=== PATIENT | male | born 1965 | race Caucasian/White ===

== ENCOUNTER → 2017-08-31 | Day surgery (SDC) | payer BC ==
[~2017-08-31] MED LIST: AMLODIPINE BESYL5 MG PO; BAYER WOMEN'S1 EACH PO; GLIPIZIDE5 MG PO; KETAMINE HCL INJ 50 MG/ML 10 ML VIAL ONE; LIDOCAINE HCL 2% LOCAL INJ 5 ML SDV VIAL INJ ONE; METFORMIN HCL1000 M1 PO; METOPROLOL SUCC50 MG PO; MIDAZOLAM HCL 2 MG/2 ML VIAL ONE; PROPOFOL IV EMULSION 10 MG/ML 50 ML VIAL ONE; RAMIPRIL5 MG PO; SIMVASTATIN20 MG PO
== END | disposition home or self-care (01) ==
LOC: OR 07:12
PROVIDERS: ATTEND Internal Medicine Gastroenterology
DX: Z12.11 Encounter for screening for malignant neoplasm of colon (principal); D12.0 Benign neoplasm of cecum; D12.2 Benign neoplasm of ascending colon; K63.9 Disease of intestine, unspecified; K57.30 Diverticulosis of large intestine without perforation or abscess without bleeding; K64.1 Second degree hemorrhoids; I10 Essential (primary) hypertension; E66.09 Other obesity due to excess calories; E11.9 Type 2 diabetes mellitus without complications; Z79.82 Long term (current) use of aspirin; Z68.41 Body mass index [BMI] 40.0-44.9, adult; Z85.47 Personal history of malignant neoplasm of testis; G47.33 Obstructive sleep apnea (adult) (pediatric)
CPT/HCPCS: 36415; 45380; 45384; 82948; 93005; J2001; J2250; 45378

== ENCOUNTER 2019-09-15 23:32 | Emergency (ER) | payer BC ==
[~2019-09-15] VITALS: Ht 193 cm; Wt 172.4 kg
[~2019-09-15 23:32] MED LIST changes: -KETAMINE HCL INJ 50 MG/ML 10 ML VIAL ONE; -LIDOCAINE HCL 2% LOCAL INJ 5 ML SDV VIAL INJ ONE; -MIDAZOLAM HCL 2 MG/2 ML VIAL ONE; -PROPOFOL IV EMULSION 10 MG/ML 50 ML VIAL ONE
[2019-09-16] MEDS ORDERED: DIAZEPAM 2 MG TAB PO ONE (00:30)
[2019-09-16] MEDS ORDERED: KETOROLAC TROMETHAMINE 60 MG/2 ML VIAL IM ONE (00:30)
--- NOTE | 2019-09-16 01:33 | Diagnostic Imaging Report ---
CT BRAIN WO, CT CERVICAL SPINE WO HISTORY: Fall COMPARISON: None. TECHNIQUE: Axial noncontrast CT images were obtained through the head and cervical spine. Coronal and sagittal reconstructions obtained from the axial data. One or more of the following dose reduction techniques were used: Automated exposure control, adjustment of the mA and/or kV according to patient size, and/or utilization of iterative reconstruction technique. DISCUSSION: HEAD CT: Scalp/Skull: Unremarkable. Brain sulci: Mildly prominent, especially along the frontal lobes. Ventricles: Mild compensatory dilatation. Extra-axial spaces: No masses or fluid collections. Parenchyma: Mild periventricular white matter hypodensities are likely chronic microvascular ischemic changes. No masses, hemorrhage, or large vascular territory acute infarct. Dural sinuses: No abnormal densities. Sellar/Suprasellar region: Intact. Skull base: Intact. Incidental findings: None. CERVICAL SPINE CT: Cervical lordosis is straightened. There is no scoliosis or subluxation. No fractures, compression deformity, or destructive osseous lesions are seen. The craniocervical junction is intact. No gross spinal canal masses are seen. The paravertebral and paraspinal soft tissues are unremarkable. Mild multilevel spondylosis is most prominent at C5-C6 and C6-C7. Mild atlantoaxial arthrosis is present as well. Incidental findings: None. IMPRESSION: Head CT: 1. No acute intracranial abnormalities. 2. Mild generalized cerebral volume loss, especially along the frontal lobes. 3. Mild supratentorial chronic microvascular ischemic change. Cervical Spine CT: 1. No acute osseous abnormalities in the cervical spine. 2. Mild multilevel spondylosis, most prominent at C5-C6 and C6-C7. Signed by: Dr. Ahmet Huertas M.D. on 09/16/2019 1:30 AM
--- NOTE | 2019-09-16 02:20 | Diagnostic Imaging Report ---
X-ray bilateral hands 3 views each HISTORY: Pain. COMPARISON: None available. FINDINGS: No displaced fracture. The osseous alignment is within normal limits. Degenerative changes in the first carpometacarpal joints and in the fingers. The soft tissues appear unremarkable. IMPRESSION: No acute radiographic osseous abnormality. Mild degenerative changes in the first metacarpal joints and fingers. Signed by: Lawrence Ying DO on 09/16/2019 2:17 AM
--- NOTE | 2019-09-16 02:22 | Diagnostic Imaging Report ---
Lumbar Spine Radiographs: 5 views with oblique views HISTORY: Pain. COMPARISON: None available. DISCUSSION: Some of the osseous structures are partially obscured by stool and bowel gas. There are five non-rib bearing lumbar vertebral bodies. The alignment of the spine is within normal limits. No displaced fracture or compression deformity is identified. Disc Spaces: Mild decreased disc space at L1-L2. Vacuum disc phenomena at L4-L5 and L5-S1. Multilevel mild disc osteophytes Facets: Sclerotic facet arthropathy in the lumbar spine. IMPRESSION: No acute radiographic osseous abnormality. Degenerative changes in the spine. Signed by: Lawrence Ying DO on 09/16/2019 2:18 AM
--- NOTE | 2019-09-16 02:24 | Diagnostic Imaging Report ---
X-ray right foot 3 views HISTORY: Pain. COMPARISON: None available. FINDINGS: Bones: No acute displaced fracture. Osseous alignment is within normal limits. Healed second toe proximal phalangeal fracture.. Joints: Scattered degenerative changes in the foot. Soft tissues: Achilles tendon calcaneal enthesophytes. Vascular calcifications. IMPRESSION: No acute radiographic osseous abnormality. Scattered degenerative changes in the foot. Signed by: Lawrence Ying DO on 09/16/2019 2:21 AM
[2019-09-16] MEDS ORDERED: ULTRAM50 MG PO (02:34)
[2019-09-16 03:05] VITALS: BP 132/69
== END 2019-09-16 03:07 | disposition home or self-care (01) ==
LOC: ER 23:32
DX: S13.4XXA Sprain of ligaments of cervical spine, initial encounter (principal); S00.83XA Contusion of other part of head, initial encounter; M25.532 Pain in left wrist; M25.531 Pain in right wrist; M54.5 Low back pain; W01.0XXA Fall on same level from slipping, tripping and stumbling without subsequent striking against object, initial encounter; Y92.39 Other specified sports and athletic area as the place of occurrence of the external cause; I10 Essential (primary) hypertension; E11.9 Type 2 diabetes mellitus without complications; Z98.84 Bariatric surgery status
CPT/HCPCS: 70450; 72110; 72125; 73130; 73630; 99284; J1885

== ENCOUNTER 2020-10-02 23:51 | Observation (INO) | payer BC ==
[~2020-10-02] VITALS: Ht 188 cm; Wt 167.8 kg
[~2020-10-02 23:51] MED LIST changes: +ULTRAM50 MG PO
[2020-10-03] VITALS (8 sets, daily range): BP systolic 156–174; BP diastolic 78–86
[2020-10-03] MEDS ORDERED: SODIUM CHLORIDE 0.9% 1000ML 1,000 ML IV STA (00:13)
[2020-10-03 00:27] LABS: BASOPHILS # (AUTO) 0.1 (0.0-0.1); BASOPHILS % 0.7 % (0.0-1.0); EOSINOPHILS # (AUTO) 0.1 (0.0-0.4); EOSINOPHILS % 1.2 % (0.0-6.0); HEMATOCRIT 47.2 % (38.2-49.6); HEMOGLOBIN 15.4 g/dL (14.0-18.0); LYMPHOCYTES # (AUTO) 1.7 (1.0-3.2); LYMPHOCYTES % 16.7 % (18.0-39.1); MEAN CORPUSCULAR HEMOGLOBIN 29.1 pg (28-32); MEAN CORPUSCULAR HGB CONC 32.6 g/dL (31-35); MEAN CORPUSCULAR VOLUME 89.2 fL (81-99); MONOCYTES # (AUTO) 0.6 (0.2-0.8); MONOCYTES % 6.2 % (4.4-11.3); NEUTROPHILS # (AUTO) 7.4 (2.1-6.9); NEUTROPHILS % 74.4 % (38.7-80.0); PLATELET COUNT 252 x10e3/uL (140-360); RED BLOOD COUNT 5.29 x10e6/uL (4.3-5.7); RED CELL DISTRIBUTION WIDTH 14.7 % (11.7-14.4)
[2020-10-03 00:46] LABS: ALANINE AMINOTRANSFERASE 15 IU/L (0-55); ALBUMIN/GLOBULIN RATIO 1.4 (0.8-2.0); ALKALINE PHOSPHATASE 74 IU/L (40-150); ANION GAP 14.1 mmol/L (8-16); BLOOD UREA NITROGEN 16 mg/dL (7-26); BUN/CREATININE RATIO 16 (6-25); CALCIUM 9.4 mg/dL (8.4-10.2); CARBON DIOXIDE 25 mmol/L (22-29); CHLORIDE 102 mmol/L (98-107); CREATINE KINASE 52 IU/L (30-200); CREATININE, SERUM 0.98 mg/dL (0.72-1.25); EST GLOMERULAR FILTRATION RATE > 60 ML/MIN (60-); GLUCOSE 146 mg/dL (74-118); POTASSIUM 4.1 mmol/L (3.5-5.1); SODIUM 137 mmol/L (136-145)
[2020-10-03] MEDS ORDERED: MORPHINE SULFATE INJ 4 MG/ML INJ 1ML IV STA (01:50)
[2020-10-03] MEDS ORDERED: ONDANSETRON HCL INJ 2MG/ML 2ML 2 MG/ML VIAL IV PRN (02:45)
[2020-10-03] MEDS ORDERED: ASPIRIN 81 MG CHEW TAB PO ONE (02:45)
[2020-10-03] MEDS: AMLODIPINE BESYLATE 5 MG TAB PO SCH (08:48)
[2020-10-03] MEDS: METOPROLOL SUCCINATE 50 MG TAB XL PO SCH (08:48)
[2020-10-03] MEDS: RAMIPRIL 5 MG CAP PO SCH ×2 (08:48→16:53)
[2020-10-03] MEDS: GLIPIZIDE 5 MG TAB PO SCH ×2 (08:48→16:53)
[2020-10-03 12:07] LABS: CREATINE KINASE MB 1.2 ng/mL (0-5.0)
[2020-10-03] MEDS: MORPHINE SULFATE INJ 4 MG/ML INJ 1ML IV PRN ×2 (12:39→20:14)
[2020-10-03] MEDS ORDERED: SIMVASTATIN 20 MG TAB PO SCH (21:00)
[2020-10-03] MEDS ORDERED: HYDRALAZINE HCL 20 MG/ML VIAL IV PRN (23:45)
[2020-10-04] VITALS (10 sets, daily range): BP systolic 121–207; BP diastolic 71–166
[2020-10-04] MEDS: MORPHINE SULFATE INJ 4 MG/ML INJ 1ML IV PRN (03:30)
[2020-10-04] MEDS ORDERED: KETOROLAC TROMETHAMINE 30 MG/ML VIAL IV STA (04:41)
[2020-10-04] MEDS ORDERED: CLONIDINE HCL 0.1 MG TAB PO PRN (04:45)
[2020-10-04 05:48] LABS: BASOPHILS # (AUTO) 0.1 (0.0-0.1); BASOPHILS % 0.8 % (0.0-1.0); EOSINOPHILS # (AUTO) 0.2 (0.0-0.4); EOSINOPHILS % 2.6 % (0.0-6.0); HEMATOCRIT 46.2 % (38.2-49.6); HEMOGLOBIN 15.2 g/dL (14.0-18.0); LYMPHOCYTES # (AUTO) 1.9 (1.0-3.2); LYMPHOCYTES % 22.1 % (18.0-39.1); MEAN CORPUSCULAR HEMOGLOBIN 29.4 pg (28-32); MEAN CORPUSCULAR HGB CONC 32.9 g/dL (31-35); MEAN CORPUSCULAR VOLUME 89.4 fL (81-99); MONOCYTES # (AUTO) 0.7 (0.2-0.8); MONOCYTES % 8.5 % (4.4-11.3); NEUTROPHILS # (AUTO) 5.6 (2.1-6.9); NEUTROPHILS % 65.3 % (38.7-80.0); PLATELET COUNT 203 x10e3/uL (140-360); RED BLOOD COUNT 5.17 x10e6/uL (4.3-5.7); RED CELL DISTRIBUTION WIDTH 14.8 % (11.7-14.4)
[2020-10-04 06:15] LABS: ALANINE AMINOTRANSFERASE 14 IU/L (0-55); ALBUMIN 3.5 g/dL (3.5-5.0); ALBUMIN/GLOBULIN RATIO 1.2 (0.8-2.0); ALKALINE PHOSPHATASE 57 IU/L (40-150); ANION GAP 10.8 mmol/L (8-16); BLOOD UREA NITROGEN 13 mg/dL (7-26); BUN/CREATININE RATIO 17 (6-25); CALCIUM 8.8 mg/dL (8.4-10.2); CARBON DIOXIDE 26 mmol/L (22-29); CHLORIDE 103 mmol/L (98-107); CREATININE, SERUM 0.78 mg/dL (0.72-1.25); EST GLOMERULAR FILTRATION RATE > 60 ML/MIN (60-); GLUCOSE 121 mg/dL (74-118); POTASSIUM 3.8 mmol/L (3.5-5.1); SODIUM 136 mmol/L (136-145)
[2020-10-04] MEDS: RAMIPRIL 5 MG CAP PO SCH (09:00)
[2020-10-04] MEDS: METOPROLOL SUCCINATE 50 MG TAB XL PO SCH (09:00)
[2020-10-04] MEDS: AMLODIPINE BESYLATE 5 MG TAB PO SCH (09:00)
[2020-10-04] MEDS: GLIPIZIDE 5 MG TAB PO SCH (09:00)
[2020-10-04] MEDS ORDERED: ONDANSETRON HCL 4 MG ORAL DISINTEGRATING TAB PO PRN (15:45)
== END 2020-10-04 17:30 | disposition home or self-care (01) ==
LOC: ER 10-03 00:11 → ERHOLD 10-03 02:36 → MED/SURG3 10-03 04:37
PROVIDERS: ADMIT Internal Medicine; ATTEND Internal Medicine
DX: R55 Syncope and collapse (principal); I10 Essential (primary) hypertension; E11.9 Type 2 diabetes mellitus without complications; W19.XXXA Unspecified fall, initial encounter; Z20.828 Contact with and (suspected) exposure to other viral communicable diseases; E78.00 Pure hypercholesterolemia, unspecified; G47.33 Obstructive sleep apnea (adult) (pediatric); E66.01 Morbid (severe) obesity due to excess calories; Z68.42 Body mass index [BMI] 45.0-49.9, adult; Z98.84 Bariatric surgery status
CPT/HCPCS: 36415 ×2; 70450; 71045; 72100; 73080; 80053 ×2; 82550; 82553; 83880; 84484; 85025 ×2; 93005; 93306; 93880; 99285; G0378 ×2; J0360; J1885; J2270 ×2; J7030; U0002

== ENCOUNTER 2021-08-08 22:08 | Inpatient (IN) | payer BC ==
[~2021-08-08] VITALS: Ht 167.6 cm; Wt 166.3 kg
[2021-08-08 22:49] LABS: BASOPHILS # (AUTO) 0.1 (0.0-0.1); BASOPHILS % 0.6 % (0.0-1.0); HEMATOCRIT 45.3 % (38.2-49.6); HEMOGLOBIN 14.6 g/dL (14.0-18.0); LYMPHOCYTES # (AUTO) 0.3 (1.0-3.2); LYMPHOCYTES % 3.4 % (18.0-39.1); MEAN CORPUSCULAR HEMOGLOBIN 29.7 pg (28-32); MEAN CORPUSCULAR HGB CONC 32.2 g/dL (31-35); MEAN CORPUSCULAR VOLUME 92.1 fL (81-99); MONOCYTES # (AUTO) 0.4 (0.2-0.8); MONOCYTES % 3.7 % (4.4-11.3); NEUTROPHILS # (AUTO) 9.1 (2.1-6.9); NEUTROPHILS % 91.7 % (38.7-80.0); PLATELET COUNT 149 x10e3/uL (140-360); RED BLOOD COUNT 4.92 x10e6/uL (4.3-5.7)
[2021-08-08 23:06] LABS: ALBUMIN 3.5 g/dL (3.5-5.0); ALBUMIN/GLOBULIN RATIO 1.1 (0.8-2.0); ANION GAP 15.7 mmol/L (8-16); CALCIUM 8.2 mg/dL (8.4-10.2); CREATININE, SERUM 1.28 mg/dL (0.72-1.25); POTASSIUM 3.7 mmol/L (3.5-5.1)
[2021-08-08] MEDS: CEFEPIME 1 GM in SODIUM CHLORIDE 0.9% 50ML 50 ML IV SCH (23:11)
[2021-08-08] MEDS ORDERED: Vancomycin IV 1 GM VIAL ONE (23:27)
[2021-08-08] MEDS: Vancomycin IV 1 GM in SODIUM CHLORIDE 0.9% 250ML 250 ML IV SCH (23:56)
[2021-08-09] VITALS (8 sets, daily range): BP systolic 118–140; BP diastolic 61–78
[2021-08-09] MEDS ORDERED: ACETAMINOPHEN 325 MG TAB PO PRN
[2021-08-09] MEDS ORDERED: Morphine 4mg Syringe 4 MG/ML INJ IV PRN
[2021-08-09] MEDS ORDERED: DEXTROSE 50% SYRINGE 50 ML IV PRN
[2021-08-09] MEDS ORDERED: ONDANSETRON HCL INJ 2MG/ML 2ML 2 MG/ML VIAL IV PRN
[2021-08-09 00:18] LABS: CLARITY,URINE CLEAR (CLEAR); COLOR,URINE YELLOW (YELLOW)
[2021-08-09 00:19] LABS: KETONES,URINE 2+ (NEGATIVE); LEUKOCYTE ESTERASE ,URINE NEGATIVE (NEGATIVE); NITRITE,URINE NEGATIVE (NEGATIVE); PROTEIN,URINE DIPSTICK NEGATIVE (NEGATIVE); URINE UROBILINOGEN 0.2 mg/dL (0.2 - 1)
[2021-08-09 00:23] LABS: BACTERIA,URINE FEW /HPF; EPITHELIAL CELLS,URINE RARE /LPF; WBC,URINE (MAN) 0-5 /HPF (0-5)
[2021-08-09] MEDS: METOPROLOL SUCCINATE 50 MG TAB XL PO SCH ×2 (00:59→17:17)
[2021-08-09] MEDS: AMLODIPINE BESYLATE 5 MG TAB PO SCH ×3 (00:59→17:16)
[2021-08-09] MEDS ORDERED: METOPROLOL SUCCINATE 50 MG TAB XL ONE (01:06)
[2021-08-09] MEDS ORDERED: AMLODIPINE BESYLATE 5 MG TAB ONE (01:06)
[2021-08-09] MEDS ORDERED: TRAMADOL HCL 50 MG TAB PO PRN (03:30)
[2021-08-09] MEDS: CEFEPIME 1 GM in SODIUM CHLORIDE 0.9% 50ML 50 ML IV SCH ×3 (05:48→21:45)
[2021-08-09] MEDS: INSULIN REGULAR, HUMAN 100 UNIT/1 ML SQ SCH ×4 (07:30→21:00)
[2021-08-09 08:01] LABS: BASOPHILS % 0.6 % (0.0-1.0); EOSINOPHILS # (AUTO) 0.1 (0.0-0.4); EOSINOPHILS % 0.9 % (0.0-6.0); HEMOGLOBIN 14.3 g/dL (14.0-18.0); LYMPHOCYTES # (AUTO) 0.3 (1.0-3.2); LYMPHOCYTES % 3.9 % (18.0-39.1); MEAN CORPUSCULAR HEMOGLOBIN 29.6 pg (28-32); MEAN CORPUSCULAR HGB CONC 32.5 g/dL (31-35); MEAN CORPUSCULAR VOLUME 91.1 fL (81-99); MONOCYTES # (AUTO) 0.4 (0.2-0.8); MONOCYTES % 5.5 % (4.4-11.3); NEUTROPHILS # (AUTO) 5.9 (2.1-6.9); NEUTROPHILS % 87.8 % (38.7-80.0); PLATELET COUNT 149 x10e3/uL (140-360); RED BLOOD COUNT 4.83 x10e6/uL (4.3-5.7); RED CELL DISTRIBUTION WIDTH 16.6 % (11.7-14.4)
[2021-08-09 08:32] LABS: ALBUMIN 3.1 g/dL (3.5-5.0); ALBUMIN/GLOBULIN RATIO 1.1 (0.8-2.0); CALCIUM 8.1 mg/dL (8.4-10.2)
[2021-08-09] MEDS: Vancomycin IV 1 GM in SODIUM CHLORIDE 0.9% 250ML 250 ML IV SCH ×2 (11:18→23:54)
[2021-08-09] MEDS: SIMVASTATIN 20 MG TAB PO SCH (21:27)
[2021-08-10] VITALS (9 sets, daily range): BP systolic 125–149; BP diastolic 56–80
[2021-08-10] MEDS: CEFEPIME 1 GM in SODIUM CHLORIDE 0.9% 50ML 50 ML IV SCH ×3 (05:32→21:35)
[2021-08-10] MEDS: INSULIN REGULAR, HUMAN 100 UNIT/1 ML SQ SCH ×4 (07:30→21:37)
[2021-08-10] MEDS: MUPIROCIN 2% OINT 22 GM TUBE TOP SCH (08:29)
[2021-08-10] MEDS: METOPROLOL SUCCINATE 50 MG TAB XL PO SCH ×2 (08:29→16:17)
[2021-08-10] MEDS: AMLODIPINE BESYLATE 5 MG TAB PO SCH ×2 (08:29→16:52)
[2021-08-10] MEDS: Vancomycin IV 1 GM in SODIUM CHLORIDE 0.9% 250ML 250 ML IV SCH (10:52)
[2021-08-10] MEDS ORDERED: Vancomycin IV 1 GM VIAL ONE (10:55)
[2021-08-10] MEDS ORDERED: SODIUM CHLORIDE 0.9% 250ML 250 ML ONE (11:01)
[2021-08-10] MEDS: DIPHENHYDRAMINE HCL 25 MG CAP PO SCH (16:52)
[2021-08-10] MEDS ORDERED: Vancomycin IV 1.25 GM in SODIUM CHLORIDE 0.9% 250ML 250 ML IV SCH (17:00)
[2021-08-10] MEDS: SIMVASTATIN 20 MG TAB PO SCH (21:35)
[2021-08-11] VITALS (8 sets, daily range): BP systolic 142–159; BP diastolic 78–97
[2021-08-11] MEDS: CEFEPIME 1 GM in SODIUM CHLORIDE 0.9% 50ML 50 ML IV SCH ×3 (05:19→21:31)
[2021-08-11] MEDS: INSULIN REGULAR, HUMAN 100 UNIT/1 ML SQ SCH ×4 (07:30→21:00)
[2021-08-11] MEDS: AMLODIPINE BESYLATE 5 MG TAB PO SCH ×2 (08:22→17:16)
[2021-08-11] MEDS: METOPROLOL SUCCINATE 50 MG TAB XL PO SCH ×2 (08:23→17:17)
[2021-08-11] MEDS ORDERED: [UNRECOGNIZED DRUG - OTHER] (08:25)
[2021-08-11] MEDS: MUPIROCIN 2% OINT 22 GM TUBE TOP SCH (09:00)
[2021-08-11] MEDS: DIPHENHYDRAMINE HCL 25 MG CAP PO SCH ×2 (11:20→23:13)
[2021-08-11] MEDS ORDERED: Vancomycin IV 1.25 GM in SODIUM CHLORIDE 0.9% 250ML 250 ML IV SCH (11:30)
[2021-08-11] MEDS ORDERED: ONDANSETRON HCL 4 MG ORAL DISINTEGRATING TAB PO PRN (11:45)
[2021-08-11] MEDS: SIMVASTATIN 20 MG TAB PO SCH (21:31)
[2021-08-11] MEDS: Vancomycin IV 1.25 GM in SODIUM CHLORIDE 0.9% 250ML 250 ML IV SCH (23:53)
[2021-08-12] VITALS (8 sets, daily range): BP systolic 132–145; BP diastolic 79–86
[2021-08-12] MEDS: CEFEPIME 1 GM in SODIUM CHLORIDE 0.9% 50ML 50 ML IV SCH ×3 (04:46→20:36)
[2021-08-12] MEDS: INSULIN REGULAR, HUMAN 100 UNIT/1 ML SQ SCH ×4 (07:30→20:34)
[2021-08-12] MEDS: DIPHENHYDRAMINE HCL 25 MG CAP PO SCH ×3 (08:48→23:07)
[2021-08-12] MEDS: METOPROLOL SUCCINATE 50 MG TAB XL PO SCH ×2 (08:48→17:21)
[2021-08-12] MEDS: AMLODIPINE BESYLATE 5 MG TAB PO SCH ×2 (08:48→17:22)
[2021-08-12] MEDS: MUPIROCIN 2% OINT 22 GM TUBE TOP SCH (09:04)
[2021-08-12] MEDS: Vancomycin IV 1.25 GM in SODIUM CHLORIDE 0.9% 250ML 250 ML IV SCH ×2 (12:23→23:43)
[2021-08-12] MEDS: SIMVASTATIN 20 MG TAB PO SCH (20:35)
[2021-08-13] VITALS (8 sets, daily range): BP systolic 132–152; BP diastolic 71–83
[2021-08-13] MEDS: CEFEPIME 1 GM in SODIUM CHLORIDE 0.9% 50ML 50 ML IV SCH ×3 (05:06→22:03)
[2021-08-13] MEDS: INSULIN REGULAR, HUMAN 100 UNIT/1 ML SQ SCH ×4 (07:30→21:05)
[2021-08-13] MEDS ORDERED: SODIUM CHLORIDE 0.9% 250ML 250 ML ONE (07:45)
[2021-08-13] MEDS: METOPROLOL SUCCINATE 50 MG TAB XL PO SCH ×2 (08:34→17:38)
[2021-08-13] MEDS: AMLODIPINE BESYLATE 5 MG TAB PO SCH ×2 (08:34→17:37)
[2021-08-13] MEDS: MUPIROCIN 2% OINT 22 GM TUBE TOP SCH (08:35)
[2021-08-13] MEDS: Vancomycin IV 1.25 GM in SODIUM CHLORIDE 0.9% 250ML 250 ML IV SCH ×2 (11:00→23:38)
[2021-08-13] MEDS: SIMVASTATIN 20 MG TAB PO SCH (21:05)
[2021-08-13] MEDS: DIPHENHYDRAMINE HCL 25 MG CAP PO SCH (23:08)
[2021-08-14] VITALS: BP 148/83
[2021-08-14 04:00] VITALS: BP 142/82
[2021-08-14] MEDS: CEFEPIME 1 GM in SODIUM CHLORIDE 0.9% 50ML 50 ML IV SCH (05:45)
[2021-08-14] MEDS: INSULIN REGULAR, HUMAN 100 UNIT/1 ML SQ SCH (07:30)
[2021-08-14 08:00] VITALS: BP 158/80
[2021-08-14] MEDS: Vancomycin IV 1.25 GM in SODIUM CHLORIDE 0.9% 250ML 250 ML IV SCH (08:23)
[2021-08-14] MEDS: DIPHENHYDRAMINE HCL 25 MG CAP PO SCH (08:23)
[2021-08-14] MEDS: AMLODIPINE BESYLATE 5 MG TAB PO SCH (08:24)
[2021-08-14] MEDS: MUPIROCIN 2% OINT 22 GM TUBE TOP SCH (08:25)
[2021-08-14] MEDS: METOPROLOL SUCCINATE 50 MG TAB XL PO SCH (08:25)
[2021-08-14 08:41] VITALS: BP 158/80
[2021-08-14 20:00] VITALS: BP 119/74
== END 2021-08-14 09:14 | disposition home or self-care (01) | DRG 623 ==
LOC: ER 22:38 → ERHOLD 08-09 00:20 → MED/SURG3 08-09 01:07
PROVIDERS: ADMIT Internal Medicine; ATTEND Internal Medicine
PROC: 0JBR0ZZ Excision of Left Foot Subcutaneous Tissue and Fascia, Open Approach (ICD-10-PCS; principal; 2021-08-09)
DX: E11.69 Type 2 diabetes mellitus with other specified complication (principal); L03.116 Cellulitis of left lower limb; Z68.43 Body mass index [BMI] 50.0-59.9, adult; L97.528 Non-pressure chronic ulcer of other part of left foot with other specified severity; M86.672 Other chronic osteomyelitis, left ankle and foot; G47.33 Obstructive sleep apnea (adult) (pediatric); E66.01 Morbid (severe) obesity due to excess calories; Z79.899 Other long term (current) drug therapy; E11.610 Type 2 diabetes mellitus with diabetic neuropathic arthropathy; E11.621 Type 2 diabetes mellitus with foot ulcer; Z20.822 Contact with and (suspected) exposure to COVID-19; E78.5 Hyperlipidemia, unspecified; G89.4 Chronic pain syndrome; E11.40 Type 2 diabetes mellitus with diabetic neuropathy, unspecified; I12.9 Hypertensive chronic kidney disease with stage 1 through stage 4 chronic kidney disease, or unspecified chronic kidney disease; E11.22 Type 2 diabetes mellitus with diabetic chronic kidney disease; N18.30 Chronic kidney disease, stage 3 unspecified
CPT/HCPCS: 36415; 71045; 80053; 80202; 81001; 82948; 83605; 85025; 87040; 87071; 87086; 87205; 87400; 94660; 96360; 96372; 99251; 99284; J0692; J3370; J7050; U0002

== ENCOUNTER → 2022-07-20 | Outpatient (CLI) | payer BC ==
[~2022-07-20] MED LIST changes: +[UNRECOGNIZED DRUG - OTHER]
== END ==
LOC: WCC 13:02 → MERGE 14:15
PROVIDERS: ATTEND Family Medicine
DX: E11.621 Type 2 diabetes mellitus with foot ulcer (principal); E11.628 Type 2 diabetes mellitus with other skin complications; M86.9 Osteomyelitis, unspecified; L97.429 Non-pressure chronic ulcer of left heel and midfoot with unspecified severity; G47.33 Obstructive sleep apnea (adult) (pediatric); I10 Essential (primary) hypertension; G90.09 Other idiopathic peripheral autonomic neuropathy; E78.01 Familial hypercholesterolemia; E66.3 Overweight; M14.672 Charcot's joint, left ankle and foot; Z01.810 Encounter for preprocedural cardiovascular examination; Z01.811 Encounter for preprocedural respiratory examination
CPT/HCPCS: 99212; G0277

== ENCOUNTER → 2022-07-22 | Outpatient (CLI) | payer BC | LOC: WCC 10:35 | PROVIDERS: ATTEND Family Medicine | DX: E11.621 Type 2 diabetes mellitus with foot ulcer (principal); E11.628 Type 2 diabetes mellitus with other skin complications; M86.9 Osteomyelitis, unspecified; L97.429 Non-pressure chronic ulcer of left heel and midfoot with unspecified severity; G90.09 Other idiopathic peripheral autonomic neuropathy; I10 Essential (primary) hypertension; E78.01 Familial hypercholesterolemia; G47.33 Obstructive sleep apnea (adult) (pediatric); M14.672 Charcot's joint, left ankle and foot; E66.3 Overweight; Z01.810 Encounter for preprocedural cardiovascular examination; Z01.811 Encounter for preprocedural respiratory examination ==

== ENCOUNTER → 2022-07-23 | Outpatient (CLI) | payer BC | LOC: WCC 12:50 | PROVIDERS: ATTEND Family Medicine Adult Medicine | DX: E11.621 Type 2 diabetes mellitus with foot ulcer (principal); E11.628 Type 2 diabetes mellitus with other skin complications; M86.9 Osteomyelitis, unspecified; L97.429 Non-pressure chronic ulcer of left heel and midfoot with unspecified severity; I10 Essential (primary) hypertension; E78.01 Familial hypercholesterolemia; G47.33 Obstructive sleep apnea (adult) (pediatric); G90.09 Other idiopathic peripheral autonomic neuropathy; M14.672 Charcot's joint, left ankle and foot; E66.3 Overweight; Z01.810 Encounter for preprocedural cardiovascular examination; Z01.811 Encounter for preprocedural respiratory examination ==

== ENCOUNTER → 2022-07-29 | Outpatient (CLI) | payer BC | LOC: WCC 15:39 | PROVIDERS: ATTEND Family Medicine | DX: E11.621 Type 2 diabetes mellitus with foot ulcer (principal); E11.628 Type 2 diabetes mellitus with other skin complications; M86.9 Osteomyelitis, unspecified; L97.429 Non-pressure chronic ulcer of left heel and midfoot with unspecified severity; G90.09 Other idiopathic peripheral autonomic neuropathy; I10 Essential (primary) hypertension; G47.33 Obstructive sleep apnea (adult) (pediatric); E78.01 Familial hypercholesterolemia; M14.672 Charcot's joint, left ankle and foot; E66.3 Overweight; Z01.810 Encounter for preprocedural cardiovascular examination; Z01.811 Encounter for preprocedural respiratory examination | CPT/HCPCS: 99213; G0277 ==

== ENCOUNTER → 2022-07-30 | Outpatient (CLI) | payer BC | LOC: WCC 13:51 | PROVIDERS: ATTEND Family Medicine | DX: E11.621 Type 2 diabetes mellitus with foot ulcer (principal); E11.628 Type 2 diabetes mellitus with other skin complications; M86.9 Osteomyelitis, unspecified; L97.429 Non-pressure chronic ulcer of left heel and midfoot with unspecified severity; I10 Essential (primary) hypertension; G47.33 Obstructive sleep apnea (adult) (pediatric); E78.01 Familial hypercholesterolemia; G90.09 Other idiopathic peripheral autonomic neuropathy; M14.672 Charcot's joint, left ankle and foot; E66.3 Overweight; Z01.810 Encounter for preprocedural cardiovascular examination; Z01.811 Encounter for preprocedural respiratory examination | CPT/HCPCS: 99212; G0277 ==

== ENCOUNTER → 2022-08-18 | Day surgery (SDC) | payer BC ==
[~2022-08-18] MED LIST changes: +BENICAR HCT 401 EACH PO; +FENTANYL CITRATE/PF 100MCG/2 ML INJ ONE; +MIDAZOLAM HCL 2 MG/2 ML VIAL ONE; +PIOGLITAZONE HC45 MG PO; +PROPOFOL IV EMULSION 10 MG/ML 50 ML VIAL IV ONE; +SYNJARDY 12.5-1 EACH PO
[2022-08-18 15:45] VITALS: BP 149/88
== END | disposition home or self-care (01) ==
LOC: OR 11:10
PROVIDERS: ATTEND Internal Medicine Gastroenterology
DX: Z12.11 Encounter for screening for malignant neoplasm of colon (principal); D12.3 Benign neoplasm of transverse colon; K63.9 Disease of intestine, unspecified; K57.30 Diverticulosis of large intestine without perforation or abscess without bleeding; K64.5 Perianal venous thrombosis; G47.30 Sleep apnea, unspecified; Z99.81 Dependence on supplemental oxygen; I10 Essential (primary) hypertension; Z01.810 Encounter for preprocedural cardiovascular examination
CPT/HCPCS: 36415; 45380; 45381; 45385; 82948; 93005; J2250; J2704; J3010; 45378

== ENCOUNTER → 2022-08-19 | Outpatient (CLI) | payer BC ==
[~2022-08-19] MED LIST changes: -FENTANYL CITRATE/PF 100MCG/2 ML INJ ONE; -MIDAZOLAM HCL 2 MG/2 ML VIAL ONE; -PROPOFOL IV EMULSION 10 MG/ML 50 ML VIAL IV ONE
== END ==
LOC: WCC 10:46
PROVIDERS: ATTEND Family Medicine
DX: E11.621 Type 2 diabetes mellitus with foot ulcer (principal); E11.628 Type 2 diabetes mellitus with other skin complications; M86.9 Osteomyelitis, unspecified; L97.429 Non-pressure chronic ulcer of left heel and midfoot with unspecified severity; I10 Essential (primary) hypertension; G90.09 Other idiopathic peripheral autonomic neuropathy; G47.33 Obstructive sleep apnea (adult) (pediatric); E78.01 Familial hypercholesterolemia; M14.672 Charcot's joint, left ankle and foot; Z01.810 Encounter for preprocedural cardiovascular examination; Z01.811 Encounter for preprocedural respiratory examination; E66.3 Overweight
CPT/HCPCS: 99212; G0277

== ENCOUNTER → 2022-08-20 | Outpatient (CLI) | payer BC | LOC: WCC 13:53 | PROVIDERS: ATTEND Family Medicine | DX: E11.621 Type 2 diabetes mellitus with foot ulcer (principal); E11.628 Type 2 diabetes mellitus with other skin complications; M86.9 Osteomyelitis, unspecified; L97.429 Non-pressure chronic ulcer of left heel and midfoot with unspecified severity; E78.01 Familial hypercholesterolemia; G90.09 Other idiopathic peripheral autonomic neuropathy; I10 Essential (primary) hypertension; G47.33 Obstructive sleep apnea (adult) (pediatric); M14.672 Charcot's joint, left ankle and foot; Z01.811 Encounter for preprocedural respiratory examination; Z01.810 Encounter for preprocedural cardiovascular examination; E66.3 Overweight ==

== ENCOUNTER → 2022-08-25 | Outpatient (CLI) | payer BC | LOC: WCC 10:21 | PROVIDERS: ATTEND Family Medicine | DX: E11.621 Type 2 diabetes mellitus with foot ulcer (principal); E11.628 Type 2 diabetes mellitus with other skin complications; M86.9 Osteomyelitis, unspecified; L97.429 Non-pressure chronic ulcer of left heel and midfoot with unspecified severity; I10 Essential (primary) hypertension; G47.33 Obstructive sleep apnea (adult) (pediatric); E78.01 Familial hypercholesterolemia; G90.09 Other idiopathic peripheral autonomic neuropathy; M14.672 Charcot's joint, left ankle and foot; E66.3 Overweight; Z01.810 Encounter for preprocedural cardiovascular examination; Z01.811 Encounter for preprocedural respiratory examination | CPT/HCPCS: 36415; 82948; 97602; 99212; G0277 ==

== ENCOUNTER → 2022-08-26 | Outpatient (CLI) | payer BC | LOC: WCC 10:47 | PROVIDERS: ATTEND Family Medicine | DX: E11.621 Type 2 diabetes mellitus with foot ulcer (principal); E11.628 Type 2 diabetes mellitus with other skin complications; M86.9 Osteomyelitis, unspecified; L97.429 Non-pressure chronic ulcer of left heel and midfoot with unspecified severity; G90.09 Other idiopathic peripheral autonomic neuropathy; I10 Essential (primary) hypertension; G47.33 Obstructive sleep apnea (adult) (pediatric); E78.01 Familial hypercholesterolemia; M14.672 Charcot's joint, left ankle and foot; Z01.810 Encounter for preprocedural cardiovascular examination; Z01.811 Encounter for preprocedural respiratory examination; E66.3 Overweight ==

== ENCOUNTER → 2022-09-01 | Outpatient (CLI) | payer BC | LOC: WCC 13:45 | PROVIDERS: ATTEND Family Medicine | DX: E11.621 Type 2 diabetes mellitus with foot ulcer (principal); E11.628 Type 2 diabetes mellitus with other skin complications; M86.9 Osteomyelitis, unspecified; L97.429 Non-pressure chronic ulcer of left heel and midfoot with unspecified severity; I10 Essential (primary) hypertension; E78.01 Familial hypercholesterolemia; G47.33 Obstructive sleep apnea (adult) (pediatric); G90.09 Other idiopathic peripheral autonomic neuropathy; M14.672 Charcot's joint, left ankle and foot; Z01.810 Encounter for preprocedural cardiovascular examination; Z01.811 Encounter for preprocedural respiratory examination; E66.3 Overweight | CPT/HCPCS: 99212; G0277 ==

== ENCOUNTER → 2022-09-14 | Outpatient (CLI) | payer BC | LOC: WCC 12:46 | PROVIDERS: ATTEND Family Medicine | DX: E11.621 Type 2 diabetes mellitus with foot ulcer (principal); E11.628 Type 2 diabetes mellitus with other skin complications; L97.429 Non-pressure chronic ulcer of left heel and midfoot with unspecified severity; M14.672 Charcot's joint, left ankle and foot; I10 Essential (primary) hypertension; E78.01 Familial hypercholesterolemia; G47.33 Obstructive sleep apnea (adult) (pediatric); G90.09 Other idiopathic peripheral autonomic neuropathy; E66.3 Overweight; Z01.810 Encounter for preprocedural cardiovascular examination; Z01.811 Encounter for preprocedural respiratory examination | CPT/HCPCS: 97602; G0277 ==

== ENCOUNTER → 2022-09-16 | Outpatient (CLI) | payer BC | LOC: WCC 14:09 | PROVIDERS: ATTEND Family Medicine | DX: E11.621 Type 2 diabetes mellitus with foot ulcer (principal); E11.628 Type 2 diabetes mellitus with other skin complications; M86.9 Osteomyelitis, unspecified; L97.429 Non-pressure chronic ulcer of left heel and midfoot with unspecified severity; G90.09 Other idiopathic peripheral autonomic neuropathy; I10 Essential (primary) hypertension; E78.01 Familial hypercholesterolemia; G47.33 Obstructive sleep apnea (adult) (pediatric); M14.672 Charcot's joint, left ankle and foot; E66.3 Overweight | CPT/HCPCS: 99213; G0277 ==

== ENCOUNTER 2023-03-30 14:27 | Inpatient (IN) | payer BC ==
[~2023-03-30] VITALS: Ht 195.6 cm; Wt 156.6 kg
[2023-03-30 15:17] LABS: BASOPHILS # (AUTO) 0.1 (0.0-0.1); BASOPHILS % 0.8 % (0.0-1.0); EOSINOPHILS # (AUTO) 0.1 (0.0-0.4); EOSINOPHILS % 1.7 % (0.0-6.0); HEMATOCRIT 48.4 % (38.2-49.6); HEMOGLOBIN 15.4 g/dL (14.0-18.0); LYMPHOCYTES # (AUTO) 0.9 (1.0-3.2); MEAN CORPUSCULAR HEMOGLOBIN 26.6 pg (28-32); MEAN CORPUSCULAR HGB CONC 31.8 g/dL (31-35); MEAN CORPUSCULAR VOLUME 83.7 fL (81-99); MONOCYTES # (AUTO) 0.8 (0.2-0.8); NEUTROPHILS # (AUTO) 4.7 (2.1-6.9); NEUTROPHILS % 71.6 % (38.7-80.0); PLATELET COUNT 220 x10e3/uL (140-360); RED BLOOD COUNT 5.78 x10e6/uL (4.3-5.7); RED CELL DISTRIBUTION WIDTH 19.7 % (11.7-14.4)
[2023-03-30] MEDS ORDERED: Vancomycin IV 1 GM in SODIUM CHLORIDE 0.9% 250ML 250 ML IV ONE (15:30)
[2023-03-30] MEDS ORDERED: SODIUM CHLORIDE FLUSH 10 ML SYR INJ PRN (15:30)
[2023-03-30 15:35] LABS: ANION GAP 15.3 mmol/L (8-16); CALCIUM 9.2 mg/dL (8.4-10.2); CREATININE, SERUM 1.32 mg/dL (0.72-1.25); POTASSIUM 4.3 mmol/L (3.5-5.1)
[2023-03-30] MEDS ORDERED: BACITRACIN ZINC 0.9GM TP ONE (15:36)
[2023-03-30] MEDS ORDERED: ONDANSETRON HCL INJ 2MG/ML 2ML 2 MG/ML VIAL ONE (16:00)
[2023-03-30] MEDS ORDERED: ONDANSETRON HCL INJ 2MG/ML 2ML 2 MG/ML VIAL IV PRN (16:00)
[2023-03-30] MEDS: HYDROCODONE/APAP 10MG-325MG TAB PO PRN (16:02)
[2023-03-30] MEDS: BACITRACIN ZINC 15 GM OINT TOP SCH (16:39)
[2023-03-30 20:00] VITALS: BP 132/78; PULSE 81; RESP 20; TEMP 98.2; O2SAT 98
[2023-03-30 20:41] VITALS: BP 132/78; PULSE 81; RESP 20; TEMP 98.2; O2SAT 98
[2023-03-30 21:23] VITALS: BP 132/78; PULSE 81; RESP 20; TEMP 98.2; O2SAT 98
[2023-03-30] MEDS ORDERED: SODIUM CHLORIDE 0.9% 250ML 250 ML ONE (23:16)
[2023-03-31] VITALS: BP 127/85; PULSE 70; RESP 18; TEMP 98.6; O2SAT 100
[2023-03-31 04:00] VITALS: BP 143/76; PULSE 63; RESP 19; TEMP 97.5; O2SAT 100
[2023-03-31] MEDS: Vancomycin IV 1 GM in SODIUM CHLORIDE 0.9% 250ML 250 ML IV SCH ×2 (04:38→15:31)
[2023-03-31 08:00] VITALS: BP 145/76; PULSE 72; RESP 18; TEMP 97.9; O2SAT 99
[2023-03-31 08:39] VITALS: BP 145/76; PULSE 72; RESP 18; TEMP 97.9; O2SAT 99
[2023-03-31] MEDS: GLIPIZIDE 5 MG TAB PO SCH ×2 (09:00→09:57)
[2023-03-31] MEDS: AMLODIPINE BESYLATE 5 MG TAB PO SCH ×3 (09:00→17:00)
[2023-03-31] MEDS: METOPROLOL SUCCINATE 50 MG TAB XL PO SCH ×2 (09:00→09:58)
[2023-03-31] MEDS: PIOGLITAZONE HCL 45 MG TAB PO SCH ×2 (09:00→09:57)
[2023-03-31] MEDS: COLLAGENASE 5 GM TUBE TP SCH ×2 (11:14→21:00)
[2023-03-31] MEDS: BACITRACIN ZINC 15 GM OINT TOP SCH (11:17)
[2023-03-31] MEDS: HYDROCODONE/APAP 10MG-325MG TAB PO PRN ×2 (13:43→20:30)
[2023-03-31 15:35] VITALS: BP 138/76; PULSE 73; RESP 20; TEMP 98.2; O2SAT 98
[2023-03-31] MEDS: GLIPIZIDE 10 MG PO SCH (16:30)
[2023-03-31] MEDS: METOPROLOL SUCCINATE 50 MG PO SCH (17:00)
[2023-03-31 20:00] VITALS: BP 147/84; PULSE 70; RESP 18; TEMP 98.7; O2SAT 98
[2023-03-31] MEDS: SIMVASTATIN 20 MG PO SCH (21:00)
[2023-04-01] VITALS (7 sets, daily range): BP systolic 124–156; BP diastolic 65–82; PULSE 66–85; RESP 16–20; TEMP 97.8–98.5; O2SAT 92–98
[2023-04-01] MEDS: Vancomycin IV 1 GM in SODIUM CHLORIDE 0.9% 250ML 250 ML IV SCH ×2 (04:48→13:19)
[2023-04-01] MEDS ORDERED: LIDOCAINE HCL 1% LOCAL INJ 20 ML VIAL ONE (07:14)
[2023-04-01] MEDS ORDERED: BETAMETHASONE DISODIUM PHOS 6 MG/ML VIAL ONE (07:14)
[2023-04-01] MEDS ORDERED: BUPIVACAINE HCL 0.5% INJ 30 ML VIAL INJ ONE (07:14)
[2023-04-01] MEDS: GLIPIZIDE 10 MG PO SCH ×2 (07:30→16:30)
[2023-04-01] MEDS: BACITRACIN ZINC 15 GM OINT TOP SCH (09:00)
[2023-04-01] MEDS: AMLODIPINE BESYLATE 5 MG TAB PO SCH ×2 (09:00→16:29)
[2023-04-01] MEDS: PIOGLITAZONE HCL 15 MG PO SCH (09:00)
[2023-04-01] MEDS: METOPROLOL SUCCINATE 50 MG PO SCH ×2 (09:00→16:29)
[2023-04-01] MEDS: COLLAGENASE 5 GM TUBE TP SCH ×2 (09:00→21:11)
[2023-04-01] MEDS ORDERED: FENTANYL CITRATE/PF 100MCG/2 ML INJ ONE (11:56)
[2023-04-01] MEDS ORDERED: DEXAMETHASONE SOD PHOS INJ 4 MG/ML SDV ONE (12:02)
[2023-04-01] MEDS ORDERED: LIDOCAINE HCL 2% LOCAL INJ 5 ML SDV VIAL INJ ONE (12:02)
[2023-04-01] MEDS ORDERED: POVIDONE IODINE 0.05% 0.05 % ML PO ONE (12:02)
[2023-04-01] MEDS ORDERED: ONDANSETRON HCL INJ 2MG/ML 2ML 2 MG/ML VIAL ONE (12:02)
[2023-04-01] MEDS ORDERED: PROPOFOL IV EMULSION 10 MG/ML 20 ML VIAL ONE (12:02)
[2023-04-01] MEDS ORDERED: GLYCOPYRROLATE INJ 0.2 MG/ML VIAL ONE (12:02)
[2023-04-01] MEDS ORDERED: SEVOFLURANE INHAL SOLN 250 ML PEN BTL ONE (12:02)
[2023-04-01] MEDS ORDERED: ONDANSETRON HCL 4 MG ORAL DISINTEGRATING TAB PO PRN (12:45)
[2023-04-01] MEDS: HYDROCODONE/APAP 10MG-325MG TAB PO PRN (16:28)
[2023-04-01] MEDS: SIMVASTATIN 20 MG PO SCH (21:11)
[2023-04-02] VITALS (8 sets, daily range): BP systolic 111–133; BP diastolic 60–73; PULSE 65–75; RESP 18–19; TEMP 97.7–98.4; O2SAT 98–100
[2023-04-02] MEDS: Vancomycin IV 1 GM in SODIUM CHLORIDE 0.9% 250ML 250 ML IV SCH ×2 (02:37→16:03)
[2023-04-02 05:39] LABS: BASOPHILS # (AUTO) 0.1 (0.0-0.1); BASOPHILS % 0.7 % (0.0-1.0); EOSINOPHILS # (AUTO) 0.2 (0.0-0.4); EOSINOPHILS % 1.9 % (0.0-6.0); HEMATOCRIT 42.1 % (38.2-49.6); HEMOGLOBIN 13.3 g/dL (14.0-18.0); LYMPHOCYTES # (AUTO) 1.7 (1.0-3.2); LYMPHOCYTES % 20.9 % (18.0-39.1); MEAN CORPUSCULAR HEMOGLOBIN 26.7 pg (28-32); MEAN CORPUSCULAR HGB CONC 31.6 g/dL (31-35); MEAN CORPUSCULAR VOLUME 84.4 fL (81-99); MONOCYTES # (AUTO) 0.7 (0.2-0.8); MONOCYTES % 8.8 % (4.4-11.3); NEUTROPHILS # (AUTO) 5.6 (2.1-6.9); NEUTROPHILS % 66.7 % (38.7-80.0); PLATELET COUNT 224 x10e3/uL (140-360); RED BLOOD COUNT 4.99 x10e6/uL (4.3-5.7); RED CELL DISTRIBUTION WIDTH 19.2 % (11.7-14.4)
[2023-04-02 07:08] LABS: ALBUMIN 3.1 g/dL (3.5-5.0); CALCIUM 8.5 mg/dL (8.4-10.2); CREATININE, SERUM 1.33 mg/dL (0.72-1.25)
[2023-04-02] MEDS: GLIPIZIDE 10 MG PO SCH ×2 (07:30→16:23)
[2023-04-02] MEDS: AMLODIPINE BESYLATE 5 MG TAB PO SCH ×2 (08:45→16:23)
[2023-04-02] MEDS: BACITRACIN ZINC 15 GM OINT TOP SCH (08:46)
[2023-04-02] MEDS: PIOGLITAZONE HCL 15 MG PO SCH (08:46)
[2023-04-02] MEDS: COLLAGENASE 5 GM TUBE TP SCH ×2 (08:46→21:27)
[2023-04-02] MEDS: METOPROLOL SUCCINATE 50 MG PO SCH ×2 (08:46→16:23)
[2023-04-02] MEDS: SIMVASTATIN 20 MG PO SCH (21:27)
[2023-04-03] VITALS (8 sets, daily range): BP systolic 124–144; BP diastolic 73–86; PULSE 67–80; RESP 17–22; TEMP 97.9–98.2; O2SAT 96–100
[2023-04-03] MEDS: Vancomycin IV 1 GM in SODIUM CHLORIDE 0.9% 250ML 250 ML IV SCH ×2 (03:18→15:43)
[2023-04-03] MEDS: GLIPIZIDE 10 MG PO SCH ×2 (07:30→15:58)
[2023-04-03] MEDS: AMLODIPINE BESYLATE 5 MG TAB PO SCH ×2 (08:56→16:33)
[2023-04-03] MEDS: METOPROLOL SUCCINATE 50 MG PO SCH ×2 (08:57→16:33)
[2023-04-03] MEDS: BACITRACIN ZINC 15 GM OINT TOP SCH (08:57)
[2023-04-03] MEDS: PIOGLITAZONE HCL 15 MG PO SCH (08:57)
[2023-04-03] MEDS: COLLAGENASE 5 GM TUBE TP SCH ×2 (08:57→20:56)
[2023-04-03] MEDS: SIMVASTATIN 20 MG PO SCH (20:56)
[2023-04-04] VITALS (9 sets, daily range): BP systolic 115–173; BP diastolic 69–88; PULSE 66–83; RESP 18–20; TEMP 97.6–98.9; O2SAT 95–100
[2023-04-04] MEDS: Vancomycin IV 1 GM in SODIUM CHLORIDE 0.9% 250ML 250 ML IV SCH ×2 (03:21→14:24)
[2023-04-04] MEDS: GLIPIZIDE 10 MG PO SCH ×2 (07:30→16:30)
[2023-04-04] MEDS: AMLODIPINE BESYLATE 5 MG TAB PO SCH ×2 (08:10→17:00)
[2023-04-04] MEDS: COLLAGENASE 5 GM TUBE TP SCH ×2 (08:11→19:37)
[2023-04-04] MEDS: PIOGLITAZONE HCL 15 MG PO SCH (08:11)
[2023-04-04] MEDS: METOPROLOL SUCCINATE 50 MG PO SCH ×2 (08:11→17:00)
[2023-04-04] MEDS: BACITRACIN ZINC 15 GM OINT TOP SCH (08:11)
[2023-04-04] MEDS: SIMVASTATIN 20 MG PO SCH (19:37)
[2023-04-05] VITALS (7 sets, daily range): BP systolic 122–162; BP diastolic 67–89; PULSE 57–77; RESP 18–20; TEMP 97.7–98.6; O2SAT 94–99
[2023-04-05] MEDS: Vancomycin IV 1 GM in SODIUM CHLORIDE 0.9% 250ML 250 ML IV SCH (03:10)
[2023-04-05] MEDS: GLIPIZIDE 10 MG PO SCH ×2 (07:30→16:30)
[2023-04-05] MEDS: COLLAGENASE 5 GM TUBE TP SCH ×2 (09:00→21:00)
[2023-04-05] MEDS: METOPROLOL SUCCINATE 50 MG PO SCH ×2 (09:00→17:00)
[2023-04-05] MEDS: AMLODIPINE BESYLATE 5 MG TAB PO SCH ×2 (09:00→17:00)
[2023-04-05] MEDS: PIOGLITAZONE HCL 15 MG PO SCH (09:00)
[2023-04-05] MEDS: BACITRACIN ZINC 15 GM OINT TOP SCH (09:00)
[2023-04-05] MEDS: CEFTRIAXONE 2 GM in SODIUM CHLORIDE 0.9% 100 ML IV SCH (13:10)
[2023-04-05] MEDS: SIMVASTATIN 20 MG PO SCH (20:26)
[2023-04-06] VITALS (7 sets, daily range): BP systolic 111–151; BP diastolic 54–78; PULSE 64–74; RESP 18–21; TEMP 97.8–98.6; O2SAT 93–99
[2023-04-06] MEDS: GLIPIZIDE 10 MG PO SCH ×2 (07:30→16:30)
[2023-04-06] MEDS: BACITRACIN ZINC 15 GM OINT TOP SCH (09:00)
[2023-04-06] MEDS: PIOGLITAZONE HCL 15 MG PO SCH (09:00)
[2023-04-06] MEDS: METOPROLOL SUCCINATE 50 MG PO SCH ×2 (09:00→16:32)
[2023-04-06] MEDS: AMLODIPINE BESYLATE 5 MG TAB PO SCH ×2 (09:00→16:32)
[2023-04-06] MEDS: COLLAGENASE 5 GM TUBE TP SCH ×2 (09:32→20:07)
[2023-04-06] MEDS: CEFTRIAXONE 2 GM in SODIUM CHLORIDE 0.9% 100 ML IV SCH (12:40)
[2023-04-06] MEDS: SIMVASTATIN 20 MG PO SCH (20:07)
[2023-04-07 00:56] VITALS: BP 133/60; PULSE 67; RESP 18; TEMP 97.9; O2SAT 99
[2023-04-07 04:05] VITALS: BP 125/60; PULSE 63; RESP 18; TEMP 98; O2SAT 98
[2023-04-07] MEDS: GLIPIZIDE 10 MG PO SCH ×2 (07:30→16:01)
[2023-04-07 08:10] VITALS: BP 134/79; PULSE 64; RESP 16; TEMP 98.2; O2SAT 99
[2023-04-07] MEDS: AMLODIPINE BESYLATE 5 MG TAB PO SCH ×2 (09:00→16:01)
[2023-04-07] MEDS: PIOGLITAZONE HCL 15 MG PO SCH (09:00)
[2023-04-07] MEDS: METOPROLOL SUCCINATE 50 MG PO SCH ×2 (09:00→16:01)
[2023-04-07 09:21] VITALS: BP 134/79; PULSE 64; RESP 15; TEMP 98.2; O2SAT 99
[2023-04-07] MEDS: COLLAGENASE 5 GM TUBE TP SCH (09:22)
[2023-04-07 12:47] VITALS: BP 131/67; PULSE 71; RESP 16; TEMP 98.1; O2SAT 99
[2023-04-07] MEDS: CEFTRIAXONE 2 GM in SODIUM CHLORIDE 0.9% 100 ML IV SCH (13:18)
[2023-04-07 15:56] VITALS: BP 143/69; PULSE 72; RESP 18; TEMP 98.2; O2SAT 97
== END 2023-04-07 17:34 | DRG 629 ==
LOC: ER 14:47 → ERHOLD 16:53 → MED/SURG2 20:04 → OBSVTOIN 03-31 16:06
PROVIDERS: ADMIT Internal Medicine; ATTEND Internal Medicine
PROC: 0QBP0ZZ Excision of Left Metatarsal, Open Approach (ICD-10-PCS; principal; 2023-04-01 07:19)
DX: E11.69 Type 2 diabetes mellitus with other specified complication (principal); L02.612 Cutaneous abscess of left foot; M86.8X7 Other osteomyelitis, ankle and foot; L03.116 Cellulitis of left lower limb; L97.528 Non-pressure chronic ulcer of other part of left foot with other specified severity; Z68.41 Body mass index [BMI] 40.0-44.9, adult; E11.610 Type 2 diabetes mellitus with diabetic neuropathic arthropathy; B95.5 Unspecified streptococcus as the cause of diseases classified elsewhere; E11.621 Type 2 diabetes mellitus with foot ulcer; I10 Essential (primary) hypertension; E66.01 Morbid (severe) obesity due to excess calories; R53.1 Weakness; R53.81 Other malaise; G47.33 Obstructive sleep apnea (adult) (pediatric); E11.51 Type 2 diabetes mellitus with diabetic peripheral angiopathy without gangrene; E11.42 Type 2 diabetes mellitus with diabetic polyneuropathy; R26.89 Other abnormalities of gait and mobility; Z79.4 Long term (current) use of insulin; Z98.84 Bariatric surgery status; Z20.822 Contact with and (suspected) exposure to COVID-19
CPT/HCPCS: 0223U; 36415; 36569; 71045; 80048; 80053; 80202; 82948; 85025; 87040; 87071; 87075; 87086; 87205; 88304; 99252; 99284; G0378; J0692; J0696; J1100; J2001; J2405; J7050

== ENCOUNTER 2024-06-13 04:29 | Inpatient (IN) | payer BC ==
[~2024-06-13] VITALS: Ht 195.6 cm; Wt 140.6 kg
[2024-06-13] VITALS (8 sets, daily range): BP systolic 122–147; BP diastolic 67–81; PULSE 65–109; RESP 16–21; TEMP 97.9–99.8; O2SAT 94–100
[~2024-06-13 04:29] MED LIST changes: +DOXYCYCLINE HY100 MG PO
[2024-06-13] MEDS ORDERED: SODIUM CHLORIDE 0.9% 1000ML 1,000 ML ONE (04:51)
[2024-06-13] MEDS: ACETAMINOPHEN 325 MG TAB PO ONE (04:54)
[2024-06-13] MEDS: SODIUM CHLORIDE 0.9% 1000ML 1,000 ML IV ONE (04:54)
[2024-06-13] MEDS ORDERED: DEXTROSE 50% SYRINGE 50 ML IV PRN ×2 (05:00→05:45)
[2024-06-13] MEDS ORDERED: ACETAMINOPHEN 325 MG TAB PO PRN (05:00)
[2024-06-13] MEDS ORDERED: ONDANSETRON HCL INJ 2MG/ML 2ML 2 MG/ML VIAL IV PRN (05:00)
[2024-06-13 05:03] LABS: BASOPHILS # (AUTO) 0.1 (0.0-0.1); BASOPHILS % 0.5 % (0.0-1.0); EOSINOPHILS # (AUTO) 0.1 (0.0-0.4); EOSINOPHILS % 0.8 % (0.0-6.0); HEMATOCRIT 47.4 % (38.2-49.6); HEMOGLOBIN 15.3 g/dL (14.0-18.0); LYMPHOCYTES % 7.5 % (18.0-39.1); MEAN CORPUSCULAR HEMOGLOBIN 30.4 pg (28-32); MEAN CORPUSCULAR HGB CONC 32.3 g/dL (31-35); MONOCYTES % 7.1 % (4.4-11.3); NEUTROPHILS # (AUTO) 11.2 (2.1-6.9); NEUTROPHILS % 83.6 % (38.7-80.0); PLATELET COUNT 200 x10e3/uL (140-360); RED BLOOD COUNT 5.04 x10e6/uL (4.3-5.7); RED CELL DISTRIBUTION WIDTH 14.1 % (11.7-14.4); WHITE BLOOD COUNT 13.42 x10e3/uL (4.8-10.8)
[2024-06-13 05:17] LABS: ALBUMIN 3.6 g/dL (3.5-5.0); BILIRUBIN,TOTAL 1.7 mg/dL (0.2-1.2); CALCIUM 9.3 mg/dL (8.4-10.2); CREATININE, SERUM 1.85 mg/dL (0.72-1.25); TOTAL PROTEIN 7.2 g/dL (6.5-8.1)
[2024-06-13] MEDS: Vancomycin IV 1 GM in SODIUM CHLORIDE 0.9% 250ML 250 ML IV SCH (05:23)
[2024-06-13] MEDS ORDERED: MOUNJARO10 MG/0.5 SQ (05:35)
[2024-06-13] MEDS: Morphine 4mg INJECTION 4 MG/ML INJ IV PRN (06:45)
[2024-06-13] MEDS ORDERED: INSULIN LISPRO 100 UNIT/1 ML 3ML VIAL SQ SCH (07:30)
[2024-06-13] MEDS: INSULIN REGULAR, HUMAN 100 UNIT/1 ML SQ SCH (07:30)
[2024-06-13] MEDS: OLMESARTAN 20 MG TAB PO SCH (09:34)
[2024-06-13] MEDS: GLIPIZIDE 5 MG TAB PO SCH (09:35)
[2024-06-13] MEDS: HYDROCHLOROTHIAZIDE 25 MG TAB PO SCH (09:35)
[2024-06-13] MEDS: METOPROLOL SUCCINATE 50 MG TAB XL PO SCH (09:35)
[2024-06-13] MEDS: AMLODIPINE BESYLATE 5 MG TAB PO SCH (09:35)
[2024-06-13 10:30] LABS: INR 1.22
[2024-06-13] MEDS: SIMVASTATIN 20 MG TAB PO SCH (20:43)
[2024-06-14] VITALS (7 sets, daily range): BP systolic 117–149; BP diastolic 65–78; PULSE 63–93; RESP 16–20; TEMP 97.3–99.2; O2SAT 97–99
[2024-06-14 05:43] LABS: BASOPHILS # (AUTO) 0.1 (0.0-0.1); BASOPHILS % 0.7 % (0.0-1.0); EOSINOPHILS # (AUTO) 0.2 (0.0-0.4); EOSINOPHILS % 2.3 % (0.0-6.0); HEMATOCRIT 45.3 % (38.2-49.6); HEMOGLOBIN 14.4 g/dL (14.0-18.0); LYMPHOCYTES % 11.8 % (18.0-39.1); MEAN CORPUSCULAR HEMOGLOBIN 30.1 pg (28-32); MEAN CORPUSCULAR HGB CONC 31.8 g/dL (31-35); MEAN CORPUSCULAR VOLUME 94.6 fL (81-99); MONOCYTES # (AUTO) 0.8 (0.2-0.8); MONOCYTES % 9.1 % (4.4-11.3); NEUTROPHILS # (AUTO) 6.5 (2.1-6.9); NEUTROPHILS % 75.6 % (38.7-80.0); PLATELET COUNT 206 x10e3/uL (140-360); RED BLOOD COUNT 4.79 x10e6/uL (4.3-5.7); WHITE BLOOD COUNT 8.65 x10e3/uL (4.8-10.8)
[2024-06-14 06:11] LABS: ALBUMIN 2.9 g/dL (3.5-5.0); ALBUMIN/GLOBULIN RATIO 0.9 (0.8-2.0); ANION GAP 13.9 mmol/L (8-16); BILIRUBIN,TOTAL 1.1 mg/dL (0.2-1.2); CALCIUM 8.8 mg/dL (8.4-10.2); CREATININE, SERUM 1.93 mg/dL (0.72-1.25); POTASSIUM 3.9 mmol/L (3.5-5.1); TOTAL PROTEIN 6.2 g/dL (6.5-8.1)
[2024-06-14] MEDS ORDERED: BETAMETHASONE DISODIUM PHOS 6 MG/ML VIAL ONE (07:10)
[2024-06-14] MEDS ORDERED: LIDOCAINE HCL 1% LOCAL INJ 20 ML VIAL ONE (07:10)
[2024-06-14] MEDS ORDERED: BUPIVACAINE HCL 0.5% INJ 30 ML VIAL INJ ONE (07:10)
[2024-06-14] MEDS ORDERED: Vancomycin IV 1 GM VIAL ONE (07:48)
[2024-06-14] MEDS ORDERED: SCOPOLAMINE 1 MG PATCH ONE (08:02)
[2024-06-14] MEDS: BUPIVACAINE HCL 0.5% INJ 30 ML VIAL INJ ONE (09:04)
[2024-06-14] MEDS: BETAMETHASONE DISODIUM PHOS 6 MG/ML VIAL IM ONE (09:05)
[2024-06-14] MEDS: LIDOCAINE HCL 1% 30ML-PF VIAL INJ ONE (09:05)
[2024-06-14] MEDS ORDERED: DEXAMETHASONE SOD PHOS INJ 4 MG/ML SDV ONE (12:19)
[2024-06-14] MEDS ORDERED: LIDOCAINE HCL 2% LOCAL INJ 5 ML SDV VIAL INJ ONE (12:19)
[2024-06-14] MEDS ORDERED: METOCLOPRAMIDE HCL 10 MG/2ML VIAL ONE (12:19)
[2024-06-14] MEDS ORDERED: PROPOFOL IV EMULSION 10 MG/ML 20 ML VIAL ONE (12:19)
[2024-06-14] MEDS ORDERED: ONDANSETRON HCL INJ 2MG/ML 2ML 2 MG/ML VIAL ONE (12:19)
[2024-06-14] MEDS ORDERED: FAMOTIDINE 20 MG/2 ML VIAL IV ONE (12:19)
[2024-06-14] MEDS ORDERED: MIDAZOLAM HCL 2 MG/2 ML VIAL ONE (12:35)
[2024-06-14] MEDS ORDERED: FENTANYL CITRATE/PF 100MCG/2 ML INJ ONE (12:35)
[2024-06-15] VITALS: BP 156/89; PULSE 64; RESP 20; TEMP 97.6; O2SAT 96
[2024-06-15 04:00] VITALS: BP 149/81; PULSE 68; RESP 18; TEMP 97.7; O2SAT 98
[2024-06-15 05:53] LABS: BASOPHILS % 0.3 % (0.0-1.0); EOSINOPHILS % 0.5 % (0.0-6.0); HEMATOCRIT 47.8 % (38.2-49.6); HEMOGLOBIN 14.9 g/dL (14.0-18.0); LYMPHOCYTES # (AUTO) 0.8 (1.0-3.2); LYMPHOCYTES % 10.8 % (18.0-39.1); MEAN CORPUSCULAR HEMOGLOBIN 30.3 pg (28-32); MEAN CORPUSCULAR HGB CONC 31.2 g/dL (31-35); MEAN CORPUSCULAR VOLUME 97.4 fL (81-99); MONOCYTES # (AUTO) 0.6 (0.2-0.8); MONOCYTES % 7.1 % (4.4-11.3); NEUTROPHILS # (AUTO) 6.2 (2.1-6.9); NEUTROPHILS % 80.5 % (38.7-80.0); PLATELET COUNT 230 x10e3/uL (140-360); RED BLOOD COUNT 4.91 x10e6/uL (4.3-5.7); WHITE BLOOD COUNT 7.72 x10e3/uL (4.8-10.8)
[2024-06-15 06:27] LABS: ALBUMIN 2.9 g/dL (3.5-5.0); ALBUMIN/GLOBULIN RATIO 0.8 (0.8-2.0); ANION GAP 16.3 mmol/L (8-16); BILIRUBIN,TOTAL 0.6 mg/dL (0.2-1.2); CREATININE, SERUM 1.48 mg/dL (0.72-1.25); POTASSIUM 4.3 mmol/L (3.5-5.1); TOTAL PROTEIN 6.6 g/dL (6.5-8.1)
[2024-06-15 08:18] VITALS: BP 131/75; PULSE 74; RESP 17; TEMP 98.5; O2SAT 99
[2024-06-15 10:09] VITALS: BP 131/75; PULSE 74; RESP 17; TEMP 98.5; O2SAT 99
[2024-06-15] MEDS ORDERED: ROPIVACAINE 0.5% 5 MG/ML 30 ML SDV ONE (12:19)
[2024-06-15] MEDS ORDERED: LIDOCAINE 2% /EPINEPHRINE 20 ML SDV INJ ONE (12:19)
[2024-06-15 20:00] VITALS: BP 147/84; PULSE 67; RESP 17; TEMP 98.5; O2SAT 99
[2024-06-15 21:58] VITALS: BP 133/81; PULSE 71; RESP 18; TEMP 97.8; O2SAT 99
[2024-06-16] VITALS (7 sets, daily range): BP systolic 108–148; BP diastolic 51–99; PULSE 59–74; RESP 18–20; TEMP 97.8–98.6; O2SAT 98–100
[2024-06-16] MEDS: SCOPOLAMINE 1 MG PATCH TOP SCH (17:44)
[2024-06-17] VITALS (8 sets, daily range): BP systolic 111–149; BP diastolic 55–91; PULSE 58–77; RESP 18–20; TEMP 97–98.6; O2SAT 98–100
[2024-06-17] MEDS ORDERED: Vancomycin IV 1 GM in SODIUM CHLORIDE 0.9% 250ML 250 ML IV SCH (06:00)
[2024-06-17] MEDS: Vancomycin IV 1 GM in SODIUM CHLORIDE 0.9% 250ML 250 ML IV SCH (06:21)
[2024-06-17 07:32] LABS: BASOPHILS # (AUTO) 0.1 (0.0-0.1); BASOPHILS % 0.9 % (0.0-1.0); EOSINOPHILS # (AUTO) 0.2 (0.0-0.4); EOSINOPHILS % 4.4 % (0.0-6.0); HEMATOCRIT 47.2 % (38.2-49.6); HEMOGLOBIN 14.7 g/dL (14.0-18.0); LYMPHOCYTES # (AUTO) 1.2 (1.0-3.2); LYMPHOCYTES % 22.1 % (18.0-39.1); MEAN CORPUSCULAR HEMOGLOBIN 30.1 pg (28-32); MEAN CORPUSCULAR HGB CONC 31.1 g/dL (31-35); MEAN CORPUSCULAR VOLUME 96.5 fL (81-99); MONOCYTES # (AUTO) 0.5 (0.2-0.8); NEUTROPHILS # (AUTO) 3.4 (2.1-6.9); NEUTROPHILS % 62.1 % (38.7-80.0); PLATELET COUNT 242 x10e3/uL (140-360); RED BLOOD COUNT 4.89 x10e6/uL (4.3-5.7); RED CELL DISTRIBUTION WIDTH 13.9 % (11.7-14.4); WHITE BLOOD COUNT 5.44 x10e3/uL (4.8-10.8)
[2024-06-17 07:59] LABS: ALBUMIN 3.1 g/dL (3.5-5.0); ALBUMIN/GLOBULIN RATIO 0.9 (0.8-2.0); BILIRUBIN,TOTAL 0.6 mg/dL (0.2-1.2); CALCIUM 9.1 mg/dL (8.4-10.2); CREATININE, SERUM 1.52 mg/dL (0.72-1.25); TOTAL PROTEIN 6.5 g/dL (6.5-8.1)
[2024-06-17] MEDS: SODIUM CHLORIDE 0.9% 250ML 250 ML ONE (09:35)
[2024-06-18] VITALS (10 sets, daily range): BP systolic 126–200; BP diastolic 70–117; PULSE 60–86; RESP 18–20; TEMP 97.6–99; O2SAT 98–100
[2024-06-18] MEDS: POVIDONE IODINE 10% 120 ML BTL EXT SCH (14:35)
[2024-06-18] MEDS ORDERED: MECLIZINE HCL 12.5 MG TAB PO PRN (15:45)
[2024-06-19] VITALS: BP 130/75; PULSE 66; RESP 18; TEMP 98.4; O2SAT 98
[2024-06-19 04:00] VITALS: BP 129/72; PULSE 58; RESP 17; TEMP 97.8; O2SAT 99
[2024-06-19 08:33] VITALS: BP 150/85; PULSE 65; RESP 20; TEMP 97.7; O2SAT 100
[2024-06-19 08:50] VITALS: BP 150/85; PULSE 65; RESP 20; TEMP 97.7; O2SAT 100
[2024-06-19 08:58] LABS: CREATININE, SERUM 1.39 mg/dL (0.72-1.25)
[2024-06-19 17:02] VITALS: BP 145/85; PULSE 68; RESP 20; TEMP 98.4; O2SAT 100
[2024-06-19] MEDS: DAPTOMYCIN 500mg 10ML 1,000 MG in SODIUM CHLORIDE 0.9% 100 ML IV SCH (17:07)
[2024-06-19 20:00] VITALS: BP 137/76; PULSE 69; RESP 20; TEMP 97.7; O2SAT 99
[2024-06-20] VITALS (7 sets, daily range): BP systolic 130–143; BP diastolic 73–87; PULSE 63–88; RESP 19–20; TEMP 97.8–98.8; O2SAT 97–100
[2024-06-20] MEDS ORDERED: BUPIVACAINE HCL 0.5% INJ 30 ML VIAL INJ ONE (06:00)
[2024-06-20] MEDS ORDERED: BUPIVACAINE HCL 0.5% INJ 30 ML VIAL INJ PRN (06:00)
[2024-06-20] MEDS ORDERED: BETAMETHASONE DISODIUM PHOS 6 MG/ML VIAL IM PRN (06:00)
[2024-06-20] MEDS ORDERED: BETAMETHASONE DISODIUM PHOS 6 MG/ML VIAL IM ONE (06:00)
[2024-06-20] MEDS ORDERED: LIDOCAINE HCL 1% 30ML-PF VIAL INJ PRN (06:00)
[2024-06-20] MEDS ORDERED: ONDANSETRON HCL 4 MG ORAL DISINTEGRATING TAB PO PRN (13:30)
[2024-06-21] VITALS (7 sets, daily range): BP systolic 112–155; BP diastolic 65–85; PULSE 64–77; RESP 18–20; TEMP 97.7–98.7; O2SAT 94–100
[2024-06-22] VITALS: BP 133/77; PULSE 74; RESP 20; TEMP 98; O2SAT 98
[2024-06-22 02:13] VITALS: BP 140/76; PULSE 77; RESP 20; TEMP 98; O2SAT 99
[2024-06-22 04:00] VITALS: BP 148/79; PULSE 78; RESP 20; TEMP 98.6; O2SAT 97
[2024-06-22 07:56] VITALS: BP 137/72; PULSE 57; RESP 18; TEMP 97.8; O2SAT 99
[2024-06-22 08:03] VITALS: BP 137/72; PULSE 57; RESP 18; TEMP 97.8; O2SAT 99
[2024-06-22 09:28] VITALS: BP 137/72
== END 2024-06-22 10:43 | disposition home or self-care (01) | DRG 628 ==
LOC: ER 04:45 → ERHOLD 04:58 → MED/SURG3 06:15
PROVIDERS: ADMIT Internal Medicine; ATTEND Internal Medicine
PROC: 0K9W0ZZ Drainage of Left Foot Muscle, Open Approach (ICD-10-PCS; 2024-06-14)
PROC: 0QBP0ZZ Excision of Left Metatarsal, Open Approach (ICD-10-PCS; principal; 2024-06-14 07:34)
PROC: 02HV33Z Insertion of Infusion Device into Superior Vena Cava, Percutaneous Approach (ICD-10-PCS; 2024-06-19)
DX: E11.621 Type 2 diabetes mellitus with foot ulcer (principal); A41.9 Sepsis, unspecified organism; A52.16 Charcot's arthropathy (tabetic); L97.526 Non-pressure chronic ulcer of other part of left foot with bone involvement without evidence of necrosis; M86.9 Osteomyelitis, unspecified; L03.116 Cellulitis of left lower limb; E11.42 Type 2 diabetes mellitus with diabetic polyneuropathy; E11.22 Type 2 diabetes mellitus with diabetic chronic kidney disease; E11.69 Type 2 diabetes mellitus with other specified complication; B95.62 Methicillin resistant Staphylococcus aureus infection as the cause of diseases classified elsewhere; B96.20 Unspecified Escherichia coli [E. coli] as the cause of diseases classified elsewhere; I12.9 Hypertensive chronic kidney disease with stage 1 through stage 4 chronic kidney disease, or unspecified chronic kidney disease; Z11.52 Encounter for screening for COVID-19; E78.00 Pure hypercholesterolemia, unspecified; N18.30 Chronic kidney disease, stage 3 unspecified; R42 Dizziness and giddiness; G47.33 Obstructive sleep apnea (adult) (pediatric); E66.01 Morbid (severe) obesity due to excess calories; Z68.36 Body mass index [BMI] 36.0-36.9, adult; Z79.84 Long term (current) use of oral hypoglycemic drugs; Z90.79 Acquired absence of other genital organ(s); Z85.47 Personal history of malignant neoplasm of testis; Z98.84 Bariatric surgery status
CPT/HCPCS: 36415; 36569; 70551; 71045; 80053; 80202; 82565; 82948; 83605; 84520; 85025; 85610; 87040; 87071; 87075; 87186; 87205; 93005; 93306; 93880; 99252; 99284; J1100; J2001; J2250; J2270; J2405; J2543; J2765; J2795; J7030; J7050; U0002

== ENCOUNTER → 2024-06-27 | Outpatient (REF) | payer BC ==
[~2024-06-27] MED LIST changes: +MOUNJARO10 MG/0.5 SQ
== END ==
LOC: WCC 11:39
PROVIDERS: ATTEND Nurse Practitioner Family
DX: E11.621 Type 2 diabetes mellitus with foot ulcer (principal); L97.426 Non-pressure chronic ulcer of left heel and midfoot with bone involvement without evidence of necrosis; Z16.35 Resistance to multiple antimicrobial drugs; B96.89 Other specified bacterial agents as the cause of diseases classified elsewhere; B95.2 Enterococcus as the cause of diseases classified elsewhere

== ENCOUNTER 2024-07-11 10:39 | Inpatient (IN) | payer BC ==
[2024-07-11] VITALS (7 sets, daily range): BP systolic 104–114; BP diastolic 53–65; PULSE 54–114; RESP 18–20; TEMP 98–99.3; O2SAT 95–97
[~2024-07-11] VITALS: Ht 195.6 cm; Wt 141.5 kg
[2024-07-11] MEDS ORDERED: SODIUM CHLORIDE 0.9% 1000ML 1,000 ML ONE (11:45)
[2024-07-11 11:47] LABS: BASOPHILS # (AUTO) 0.1 (0.0-0.1); BASOPHILS % 0.4 % (0.0-1.0); EOSINOPHILS # (AUTO) 0.2 (0.0-0.4); EOSINOPHILS % 1.3 % (0.0-6.0); HEMATOCRIT 43.8 % (38.2-49.6); HEMOGLOBIN 14.2 g/dL (14.0-18.0); LYMPHOCYTES # (AUTO) 0.3 (1.0-3.2); LYMPHOCYTES % 2.3 % (18.0-39.1); MEAN CORPUSCULAR HEMOGLOBIN 29.2 pg (28-32); MEAN CORPUSCULAR HGB CONC 32.4 g/dL (31-35); MEAN CORPUSCULAR VOLUME 89.9 fL (81-99); MONOCYTES # (AUTO) 0.8 (0.2-0.8); MONOCYTES % 5.4 % (4.4-11.3); NEUTROPHILS # (AUTO) 13.1 (2.1-6.9); NEUTROPHILS % 89.8 % (38.7-80.0); PLATELET COUNT 338 x10e3/uL (140-360); RED BLOOD COUNT 4.87 x10e6/uL (4.3-5.7); RED CELL DISTRIBUTION WIDTH 14.8 % (11.7-14.4); WHITE BLOOD COUNT 14.57 x10e3/uL (4.8-10.8)
[2024-07-11] MEDS: MEROPENEM 1 GM in SODIUM CHLORIDE 0.9% 100 ML IV ONE (12:01)
[2024-07-11 12:03] LABS: INR 1.24; PROTHROMBIN TIME 16.2 seconds (11.9-14.5)
[2024-07-11 12:04] LABS: PARTIAL THROMBOPLASTIN TIME 28.7 seconds (23.8-35.5)
[2024-07-11 12:12] LABS: ALBUMIN/GLOBULIN RATIO 0.7 (0.8-2.0); ANION GAP 18.1 mmol/L (8-16); BILIRUBIN,TOTAL 0.9 mg/dL (0.2-1.2); CALCIUM 9.3 mg/dL (8.4-10.2); CREATININE, SERUM 2.74 mg/dL (0.72-1.25); POTASSIUM 4.1 mmol/L (3.5-5.1); TOTAL PROTEIN 7.1 g/dL (6.5-8.1)
[2024-07-11] MEDS: SODIUM CHLORIDE 0.9% 1000ML 1,000 ML IV STA ×2 (12:49→12:50)
[2024-07-11] MEDS: Vancomycin IV 1 GM in SODIUM CHLORIDE 0.9% 250ML 250 ML IV ONE (13:15)
[2024-07-11] MEDS: HYDROCODONE/APAP 7.5MG-325MG 1 EA TAB PO PRN (13:41)
[2024-07-11] MEDS ORDERED: ONDANSETRON HCL INJ 2MG/ML 2ML 2 MG/ML VIAL IV PRN (13:45)
[2024-07-11] MEDS ORDERED: TESTOSTERONE200 MG IM (14:58)
[2024-07-11] MEDS: SODIUM CHLORIDE 0.9% 1000ML 1,000 ML IV SCH (15:33)
[2024-07-11 15:43] LABS: TROPONIN I 0.001 ng/mL (0-0.300)
[2024-07-11 19:06] LABS: BILIRUBIN,URINE NEGATIVE (NEGATIVE); CLARITY,URINE SL CLOUDY (CLEAR); COLOR,URINE YELLOW (YELLOW); GLUCOSE, URINE 500 (NEGATIVE); KETONES,URINE NEGATIVE (NEGATIVE); LEUKOCYTE ESTERASE ,URINE NEGATIVE (NEGATIVE); NITRITE,URINE NEGATIVE (NEGATIVE); PH,URINE 5.5 (5 - 7); PROTEIN,URINE DIPSTICK TRACE (NEGATIVE); URINE UROBILINOGEN 0.2 mg/dL (0.2 - 1)
[2024-07-11 19:26] LABS: BACTERIA,URINE FEW /HPF; WBC,URINE (MAN) 0-5 /HPF (0-5)
[2024-07-12 03:50] VITALS: BP 100/58; PULSE 107; RESP 18; TEMP 99.4; O2SAT 95
[2024-07-12] MEDS: SODIUM CHLORIDE 0.9% 1000ML 500 ML IV ONE (04:56)
[2024-07-12 06:23] LABS: BASOPHILS % 0.3 % (0.0-1.0); EOSINOPHILS # (AUTO) 0.2 (0.0-0.4); HEMATOCRIT 36.4 % (38.2-49.6); HEMOGLOBIN 11.4 g/dL (14.0-18.0); LYMPHOCYTES # (AUTO) 0.6 (1.0-3.2); LYMPHOCYTES % 6.3 % (18.0-39.1); MEAN CORPUSCULAR HEMOGLOBIN 29.2 pg (28-32); MEAN CORPUSCULAR HGB CONC 31.3 g/dL (31-35); MEAN CORPUSCULAR VOLUME 93.1 fL (81-99); MONOCYTES # (AUTO) 0.8 (0.2-0.8); MONOCYTES % 7.8 % (4.4-11.3); NEUTROPHILS # (AUTO) 8.1 (2.1-6.9); NEUTROPHILS % 82.8 % (38.7-80.0); PLATELET COUNT 291 x10e3/uL (140-360); RED BLOOD COUNT 3.91 x10e6/uL (4.3-5.7)
[2024-07-12 06:46] LABS: CREATINE KINASE 16 IU/L (30-200)
[2024-07-12 06:49] LABS: TROPONIN I < 0.001 ng/mL (0-0.300)
[2024-07-12 07:06] LABS: ALBUMIN 2.3 g/dL (3.5-5.0); ALBUMIN/GLOBULIN RATIO 0.7 (0.8-2.0); ANION GAP 13.9 mmol/L (8-16); BILIRUBIN,TOTAL 0.5 mg/dL (0.2-1.2); CALCIUM 7.9 mg/dL (8.4-10.2); CREATININE, SERUM 2.24 mg/dL (0.72-1.25); POTASSIUM 3.9 mmol/L (3.5-5.1); TOTAL PROTEIN 5.6 g/dL (6.5-8.1)
[2024-07-12 08:09] VITALS: BP 104/62; PULSE 102; RESP 19; TEMP 99; O2SAT 100
[2024-07-12] MEDS: GLIPIZIDE 5 MG TAB PO SCH (08:52)
[2024-07-12] MEDS ORDERED: AMLODIPINE BESYLATE 5 MG TAB PO SCH (09:00)
[2024-07-12 09:29] VITALS: BP 104/62; PULSE 102; RESP 19; TEMP 99; O2SAT 100
[2024-07-12 11:04] LABS: BASOPHILS % 0.2 % (0.0-1.0); EOSINOPHILS # (AUTO) 0.2 (0.0-0.4); EOSINOPHILS % 1.9 % (0.0-6.0); HEMATOCRIT 36.6 % (38.2-49.6); HEMOGLOBIN 11.7 g/dL (14.0-18.0); LYMPHOCYTES % 10.2 % (18.0-39.1); MEAN CORPUSCULAR HEMOGLOBIN 29.8 pg (28-32); MEAN CORPUSCULAR VOLUME 93.4 fL (81-99); MONOCYTES # (AUTO) 0.5 (0.2-0.8); MONOCYTES % 5.3 % (4.4-11.3); NEUTROPHILS % 81.3 % (38.7-80.0); PLATELET COUNT 288 x10e3/uL (140-360); RED BLOOD COUNT 3.92 x10e6/uL (4.3-5.7); RED CELL DISTRIBUTION WIDTH 15.1 % (11.7-14.4); WHITE BLOOD COUNT 9.87 x10e3/uL (4.8-10.8)
[2024-07-12 11:14] LABS: INR 1.25; PROTHROMBIN TIME 16.3 seconds (11.9-14.5)
[2024-07-12 11:20] LABS: CREATINE KINASE 18 IU/L (30-200)
[2024-07-12 11:33] LABS: TROPONIN I < 0.001 ng/mL (0-0.300)
[2024-07-12 12:46] VITALS: BP 153/77; PULSE 107; RESP 19; TEMP 97.7; O2SAT 99
[2024-07-12] MEDS: MEROPENEM 1 GM in SODIUM CHLORIDE 0.9% 100 ML IV SCH (13:56)
[2024-07-12 16:42] VITALS: BP 136/71; PULSE 111; RESP 20; TEMP 100.1; O2SAT 99
[2024-07-12] MEDS: ACETAMINOPHEN 325 MG TAB PO PRN (16:46)
[2024-07-12 20:00] VITALS: BP 152/80; PULSE 103; RESP 20; TEMP 99.6; O2SAT 98
[2024-07-12] MEDS: SIMVASTATIN 20 MG TAB PO SCH (21:17)
[2024-07-13] VITALS (8 sets, daily range): BP systolic 130–165; BP diastolic 62–79; PULSE 100–107; RESP 18–21; TEMP 98.2–100.1; O2SAT 96–99
[2024-07-13 05:58] LABS: BASOPHILS # (AUTO) 0.1 (0.0-0.1); BASOPHILS % 0.6 % (0.0-1.0); EOSINOPHILS # (AUTO) 0.2 (0.0-0.4); HEMATOCRIT 31.2 % (38.2-49.6); HEMOGLOBIN 9.9 g/dL (14.0-18.0); LYMPHOCYTES # (AUTO) 0.7 (1.0-3.2); LYMPHOCYTES % 9.1 % (18.0-39.1); MEAN CORPUSCULAR HEMOGLOBIN 29.2 pg (28-32); MEAN CORPUSCULAR HGB CONC 31.7 g/dL (31-35); MONOCYTES # (AUTO) 0.7 (0.2-0.8); MONOCYTES % 9.1 % (4.4-11.3); NEUTROPHILS # (AUTO) 6.1 (2.1-6.9); NEUTROPHILS % 77.9 % (38.7-80.0); PLATELET COUNT 271 x10e3/uL (140-360); RED BLOOD COUNT 3.39 x10e6/uL (4.3-5.7); RED CELL DISTRIBUTION WIDTH 15.2 % (11.7-14.4); WHITE BLOOD COUNT 7.82 x10e3/uL (4.8-10.8)
[2024-07-13 14:02] LABS: ALBUMIN 2.3 g/dL (3.5-5.0); ALBUMIN/GLOBULIN RATIO 0.6 (0.8-2.0); ANION GAP 13.1 mmol/L (8-16); BILIRUBIN,TOTAL 0.5 mg/dL (0.2-1.2); CALCIUM 8.4 mg/dL (8.4-10.2); CREATININE, SERUM 1.32 mg/dL (0.72-1.25); POTASSIUM 4.1 mmol/L (3.5-5.1); TOTAL PROTEIN 6.1 g/dL (6.5-8.1)
[2024-07-13] MEDS: METOPROLOL SUCCINATE 25 MG TAB XL PO SCH (15:58)
[2024-07-14] VITALS: BP 137/72; PULSE 94; RESP 20; TEMP 98.8; O2SAT 97
[2024-07-14 04:00] VITALS: BP 134/69; PULSE 99; RESP 20; TEMP 98.8; O2SAT 97
[2024-07-14 05:52] LABS: BASOPHILS # (AUTO) 0.1 (0.0-0.1); EOSINOPHILS # (AUTO) 0.2 (0.0-0.4); EOSINOPHILS % 2.1 % (0.0-6.0); HEMATOCRIT 35.8 % (38.2-49.6); HEMOGLOBIN 11.3 g/dL (14.0-18.0); LYMPHOCYTES # (AUTO) 0.9 (1.0-3.2); LYMPHOCYTES % 10.8 % (18.0-39.1); MEAN CORPUSCULAR HEMOGLOBIN 28.8 pg (28-32); MEAN CORPUSCULAR HGB CONC 31.6 g/dL (31-35); MEAN CORPUSCULAR VOLUME 91.1 fL (81-99); MONOCYTES # (AUTO) 0.7 (0.2-0.8); NEUTROPHILS # (AUTO) 6.2 (2.1-6.9); NEUTROPHILS % 74.9 % (38.7-80.0); PLATELET COUNT 327 x10e3/uL (140-360); RED BLOOD COUNT 3.93 x10e6/uL (4.3-5.7); RED CELL DISTRIBUTION WIDTH 15.1 % (11.7-14.4); WHITE BLOOD COUNT 8.25 x10e3/uL (4.8-10.8)
[2024-07-14 06:08] LABS: ALBUMIN 2.1 g/dL (3.5-5.0); ALBUMIN/GLOBULIN RATIO 0.6 (0.8-2.0); BILIRUBIN,TOTAL 0.6 mg/dL (0.2-1.2); CREATININE, SERUM 1.14 mg/dL (0.72-1.25); MAGNESIUM 1.8 MG/DL (1.3-2.1); TOTAL PROTEIN 5.5 g/dL (6.5-8.1)
[2024-07-14] MEDS ORDERED: BETAMETHASONE DISODIUM PHOS 6 MG/ML VIAL ONE (06:29)
[2024-07-14] MEDS ORDERED: LIDOCAINE HCL 1% LOCAL INJ 20 ML VIAL ONE (06:30)
[2024-07-14] MEDS ORDERED: BUPIVACAINE HCL 0.5% INJ 30 ML VIAL INJ ONE (06:30)
[2024-07-14] MEDS ORDERED: Vancomycin IV 1 GM VIAL ONE (06:53)
[2024-07-14] MEDS ORDERED: ACETAMINOPHEN 1000 MG/100 ML 100 ML IV ONE (06:53)
[2024-07-14] MEDS ORDERED: MUPIROCIN 2% OINT 22 GM TUBE ONE (08:00)
[2024-07-14 09:00] VITALS: BP 115/59; PULSE 83; RESP 14; TEMP 98; O2SAT 98
[2024-07-14 11:15] VITALS: BP 152/89; PULSE 87; RESP 18; TEMP 98.8; O2SAT 97
[2024-07-14] MEDS ORDERED: FENTANYL CITRATE/PF 100MCG/2 ML INJ ONE (11:31)
[2024-07-14] MEDS ORDERED: ONDANSETRON HCL 4 MG ORAL DISINTEGRATING TAB PO PRN (13:45)
[2024-07-14 15:43] VITALS: BP 141/85; PULSE 91; RESP 18; TEMP 98.8; O2SAT 97
[2024-07-14] MEDS ORDERED: SEVOFLURANE INHAL SOLN 250 ML PEN BTL ONE (16:29)
[2024-07-14] MEDS ORDERED: ONDANSETRON HCL INJ 2MG/ML 2ML 2 MG/ML VIAL ONE (16:29)
[2024-07-14] MEDS ORDERED: LIDOCAINE HCL 2% LOCAL INJ 5 ML SDV VIAL INJ ONE (16:29)
[2024-07-14] MEDS ORDERED: DEXAMETHASONE SOD PHOS INJ 4 MG/ML SDV ONE (16:29)
[2024-07-14] MEDS ORDERED: PROPOFOL IV EMULSION 10 MG/ML 20 ML VIAL ONE (16:29)
[2024-07-14 20:00] VITALS: BP_SYST 141; BP_SYST 159; BP_DIAS 82; BP_DIAS 85; PULSE 103; PULSE 91; RESP 18; TEMP 100.3; TEMP 98.8; O2SAT 96; O2SAT 97
[2024-07-15] VITALS (7 sets, daily range): BP systolic 136–167; BP diastolic 75–92; PULSE 86–106; RESP 18; TEMP 97.9–100.1; O2SAT 96–99
[2024-07-15 04:58] LABS: BASOPHILS # (AUTO) 0.1 (0.0-0.1); BASOPHILS % 1.3 % (0.0-1.0); EOSINOPHILS # (AUTO) 0.2 (0.0-0.4); EOSINOPHILS % 2.1 % (0.0-6.0); HEMATOCRIT 36.7 % (38.2-49.6); HEMOGLOBIN 11.7 g/dL (14.0-18.0); LYMPHOCYTES # (AUTO) 1.2 (1.0-3.2); LYMPHOCYTES % 14.2 % (18.0-39.1); MEAN CORPUSCULAR HEMOGLOBIN 29.1 pg (28-32); MEAN CORPUSCULAR HGB CONC 31.9 g/dL (31-35); MEAN CORPUSCULAR VOLUME 91.3 fL (81-99); MONOCYTES # (AUTO) 0.8 (0.2-0.8); MONOCYTES % 9.8 % (4.4-11.3); NEUTROPHILS # (AUTO) 5.8 (2.1-6.9); NEUTROPHILS % 68.5 % (38.7-80.0); PLATELET COUNT 354 x10e3/uL (140-360); RED BLOOD COUNT 4.02 x10e6/uL (4.3-5.7); RED CELL DISTRIBUTION WIDTH 15.4 % (11.7-14.4); WHITE BLOOD COUNT 8.45 x10e3/uL (4.8-10.8)
[2024-07-15 05:16] LABS: ALBUMIN 2.1 g/dL (3.5-5.0); ALBUMIN/GLOBULIN RATIO 0.6 (0.8-2.0); ANION GAP 13.1 mmol/L (8-16); BILIRUBIN,TOTAL 0.5 mg/dL (0.2-1.2); CALCIUM 8.2 mg/dL (8.4-10.2); CREATININE, SERUM 1.09 mg/dL (0.72-1.25); POTASSIUM 4.1 mmol/L (3.5-5.1); TOTAL PROTEIN 5.6 g/dL (6.5-8.1)
[2024-07-15] MEDS: ALTEPLASE RECOMBINANT 2 MG/2 ML VIAL IV PRN (12:52)
[2024-07-16] VITALS (7 sets, daily range): BP systolic 134–166; BP diastolic 71–93; PULSE 86–92; RESP 17–19; TEMP 97.9–99.4; O2SAT 96–99
[2024-07-16] MEDS: OLMESARTAN 20 MG TAB PO SCH (08:39)
[2024-07-16] MEDS: METOPROLOL SUCCINATE 25 MG TAB XL PO SCH (08:40)
[2024-07-16] MEDS: GUAIFENESIN/DEXTROMETHORPHAN LIQD 5 ML UDC NG PRN (21:00)
[2024-07-17] VITALS (7 sets, daily range): BP systolic 142–161; BP diastolic 73–91; PULSE 84–92; RESP 18–20; TEMP 97.9–98.9; O2SAT 96–100
[2024-07-18 06:04] LABS: BASOPHILS # (AUTO) 0.1 (0.0-0.1); BASOPHILS % 1.3 % (0.0-1.0); EOSINOPHILS # (AUTO) 0.2 (0.0-0.4); EOSINOPHILS % 2.9 % (0.0-6.0); HEMATOCRIT 34.2 % (38.2-49.6); HEMOGLOBIN 10.9 g/dL (14.0-18.0); LYMPHOCYTES # (AUTO) 1.3 (1.0-3.2); LYMPHOCYTES % 16.2 % (18.0-39.1); MEAN CORPUSCULAR HEMOGLOBIN 29.1 pg (28-32); MEAN CORPUSCULAR HGB CONC 31.9 g/dL (31-35); MEAN CORPUSCULAR VOLUME 91.2 fL (81-99); MONOCYTES # (AUTO) 0.6 (0.2-0.8); MONOCYTES % 7.5 % (4.4-11.3); NEUTROPHILS # (AUTO) 5.4 (2.1-6.9); NEUTROPHILS % 65.8 % (38.7-80.0); PLATELET COUNT 361 x10e3/uL (140-360); RED BLOOD COUNT 3.75 x10e6/uL (4.3-5.7); RED CELL DISTRIBUTION WIDTH 15.2 % (11.7-14.4); WHITE BLOOD COUNT 8.15 x10e3/uL (4.8-10.8)
[2024-07-18 06:37] LABS: ALBUMIN 1.9 g/dL (3.5-5.0); ALBUMIN/GLOBULIN RATIO 0.6 (0.8-2.0); ANION GAP 10.9 mmol/L (8-16); BILIRUBIN,TOTAL 0.6 mg/dL (0.2-1.2); CALCIUM 8.2 mg/dL (8.4-10.2); CREATININE, SERUM 0.79 mg/dL (0.72-1.25); POTASSIUM 3.9 mmol/L (3.5-5.1); TOTAL PROTEIN 5.1 g/dL (6.5-8.1)
[2024-07-18 08:18] VITALS: BP 157/84; PULSE 83; RESP 20; TEMP 98.4; O2SAT 99
[2024-07-18 12:29] VITALS: BP 158/72; PULSE 80; RESP 20; TEMP 98.8; O2SAT 100
[2024-07-18 16:50] VITALS: BP 159/88; PULSE 87; RESP 20; TEMP 98.4; O2SAT 100
[2024-07-18] MEDS: CEFTRIAXONE 2 GM in SODIUM CHLORIDE 0.9% 100 ML IV SCH (17:13)
[2024-07-18 20:00] VITALS: BP 170/87; PULSE 88; RESP 21; TEMP 98.1; O2SAT 97
[2024-07-18 23:19] VITALS: BP 124/86; PULSE 88; RESP 18; TEMP 98.1; O2SAT 98
[2024-07-19] VITALS (7 sets, daily range): BP systolic 142–162; BP diastolic 74–90; PULSE 73–86; RESP 18–19; TEMP 97.7–99.3; O2SAT 97–99
[2024-07-19] MEDS ORDERED: IOPAMIDOL 370 MG/ML 100 ML INFUS..BTL INJ ONE (05:03)
[2024-07-19] MEDS: METOPROLOL SUCCINATE 25 MG TAB XL PO SCH (20:29)
[2024-07-20] VITALS (8 sets, daily range): BP systolic 138–172; BP diastolic 73–83; PULSE 67–83; RESP 17–19; TEMP 97.7–99.4; O2SAT 96–98
[2024-07-20] MEDS: BISACODYL 5 MG TAB EC PO SCH (05:23)
[2024-07-20] MEDS ORDERED: HYDROCODONE/APAP 7.5MG-325MG 1 EA TAB PO PRN (11:15)
[2024-07-20] MEDS: HYDROCODONE/APAP 7.5MG-325MG 1 EA TAB PO PRN (11:23)
[2024-07-21] VITALS (7 sets, daily range): BP systolic 104–167; BP diastolic 58–88; PULSE 66–76; RESP 17–20; TEMP 97.5–99.4; O2SAT 98–100
[2024-07-21 05:31] LABS: BASOPHILS # (AUTO) 0.1 (0.0-0.1); BASOPHILS % 1.8 % (0.0-1.0); EOSINOPHILS # (AUTO) 0.1 (0.0-0.4); EOSINOPHILS % 1.8 % (0.0-6.0); HEMATOCRIT 34.8 % (38.2-49.6); LYMPHOCYTES # (AUTO) 1.4 (1.0-3.2); MEAN CORPUSCULAR HEMOGLOBIN 28.6 pg (28-32); MEAN CORPUSCULAR HGB CONC 31.6 g/dL (31-35); MEAN CORPUSCULAR VOLUME 90.4 fL (81-99); MONOCYTES # (AUTO) 0.7 (0.2-0.8); MONOCYTES % 10.7 % (4.4-11.3); NEUTROPHILS # (AUTO) 3.6 (2.1-6.9); NEUTROPHILS % 59.7 % (38.7-80.0); PLATELET COUNT 359 x10e3/uL (140-360); RED BLOOD COUNT 3.85 x10e6/uL (4.3-5.7); RED CELL DISTRIBUTION WIDTH 15.4 % (11.7-14.4); WHITE BLOOD COUNT 6.05 x10e3/uL (4.8-10.8)
[2024-07-21 06:04] LABS: ALBUMIN 2.1 g/dL (3.5-5.0); ALBUMIN/GLOBULIN RATIO 0.6 (0.8-2.0); ANION GAP 10.9 mmol/L (8-16); BILIRUBIN,TOTAL 0.6 mg/dL (0.2-1.2); CALCIUM 8.7 mg/dL (8.4-10.2); CREATININE, SERUM 0.96 mg/dL (0.72-1.25); POTASSIUM 3.9 mmol/L (3.5-5.1); TOTAL PROTEIN 5.6 g/dL (6.5-8.1)
[2024-07-22] VITALS (9 sets, daily range): BP systolic 139–153; BP diastolic 63–96; PULSE 61–87; RESP 17–20; TEMP 97.6–98.9; O2SAT 98–100
[2024-07-23 04:00] VITALS: BP 138/62; PULSE 63; RESP 20; TEMP 97.5; O2SAT 100
[2024-07-23 05:25] LABS: BASOPHILS % 0.5 % (0.0-1.0); EOSINOPHILS # (AUTO) 0.2 (0.0-0.4); EOSINOPHILS % 2.7 % (0.0-6.0); HEMATOCRIT 36.4 % (38.2-49.6); HEMOGLOBIN 11.2 g/dL (14.0-18.0); LYMPHOCYTES # (AUTO) 1.6 (1.0-3.2); LYMPHOCYTES % 25.1 % (18.0-39.1); MEAN CORPUSCULAR HEMOGLOBIN 28.4 pg (28-32); MEAN CORPUSCULAR HGB CONC 30.8 g/dL (31-35); MEAN CORPUSCULAR VOLUME 92.2 fL (81-99); MONOCYTES # (AUTO) 0.6 (0.2-0.8); MONOCYTES % 9.6 % (4.4-11.3); NEUTROPHILS # (AUTO) 3.7 (2.1-6.9); NEUTROPHILS % 59.2 % (38.7-80.0); PLATELET COUNT 359 x10e3/uL (140-360); RED BLOOD COUNT 3.95 x10e6/uL (4.3-5.7); RED CELL DISTRIBUTION WIDTH 15.1 % (11.7-14.4); WHITE BLOOD COUNT 6.22 x10e3/uL (4.8-10.8)
[2024-07-23 05:43] LABS: ALBUMIN 2.2 g/dL (3.5-5.0); ALBUMIN/GLOBULIN RATIO 0.6 (0.8-2.0); BILIRUBIN,TOTAL 0.6 mg/dL (0.2-1.2); CALCIUM 8.9 mg/dL (8.4-10.2); CREATININE, SERUM 0.89 mg/dL (0.72-1.25); MAGNESIUM 1.8 MG/DL (1.3-2.1); TOTAL PROTEIN 5.9 g/dL (6.5-8.1)
[2024-07-23 07:37] VITALS: BP 138/62; PULSE 63; RESP 20; TEMP 97.5; O2SAT 100
[2024-07-23] MEDS: SODIUM CHLORIDE 0.9% 250ML 250 ML ONE (07:38)
[2024-07-23 08:00] VITALS: BP 142/84; PULSE 65; RESP 17; TEMP 98.2; O2SAT 99
[2024-07-23 08:01] LABS: EOSINOPHILS % (MANUAL) 1 % (0-7); HYPOCHROMASIA SLIGHT; LYMPHOCYTES % (MANUAL) 25 % (19-48); MONOCYTES % (MANUAL) 9 % (3.4-9.0); NEUTROPHILS % (MANUAL) 63 % (40-74); PLATELET ESTIMATE ADEQUATE; PLATELET MORPHOLOGY COMMENT NORMAL; RBC MORPHOLOGY COMMENT NORMAL; REACTIVE LYMPHOCYTES 2
[2024-07-23 16:00] VITALS: BP 118/75; PULSE 85; RESP 17; TEMP 97.9
[2024-07-24] VITALS (7 sets, daily range): BP systolic 136–166; BP diastolic 60–82; PULSE 64–72; RESP 16–19; TEMP 97.9–99.2; O2SAT 94–100
[2024-07-24] MEDS ORDERED: LIDOCAINE HCL 1% LOCAL INJ 20 ML VIAL ONE (06:55)
[2024-07-24] MEDS ORDERED: BUPIVACAINE HCL 0.5% INJ 30 ML VIAL INJ ONE (06:55)
[2024-07-24] MEDS ORDERED: NEOSTIGMINE 1 MG/ML 10ML VIAL ONE (06:55)
[2024-07-24] MEDS ORDERED: BETAMETHASONE DISODIUM PHOS 6 MG/ML VIAL ONE (07:40)
[2024-07-24] MEDS ORDERED: Vancomycin IV 1 GM VIAL ONE (07:53)
[2024-07-24] MEDS ORDERED: FENTANYL CITRATE/PF 100MCG/2 ML INJ ONE (12:44)
[2024-07-24] MEDS ORDERED: PROPOFOL IV EMULSION 10 MG/ML 20 ML VIAL ONE (16:58)
[2024-07-24] MEDS ORDERED: SEVOFLURANE INHAL SOLN 250 ML PEN BTL ONE (16:58)
[2024-07-24] MEDS ORDERED: LIDOCAINE HCL 2% LOCAL INJ 5 ML SDV VIAL INJ ONE (16:58)
[2024-07-25] VITALS (8 sets, daily range): BP systolic 131–160; BP diastolic 69–81; PULSE 63–74; RESP 18–20; TEMP 97.6–99; O2SAT 98–100
[2024-07-25 06:18] LABS: BASOPHILS % 0.3 % (0.0-1.0); EOSINOPHILS # (AUTO) 0.2 (0.0-0.4); EOSINOPHILS % 3.1 % (0.0-6.0); HEMATOCRIT 35.7 % (38.2-49.6); HEMOGLOBIN 10.8 g/dL (14.0-18.0); LYMPHOCYTES # (AUTO) 1.5 (1.0-3.2); LYMPHOCYTES % 26.5 % (18.0-39.1); MEAN CORPUSCULAR HEMOGLOBIN 28.1 pg (28-32); MEAN CORPUSCULAR HGB CONC 30.3 g/dL (31-35); MEAN CORPUSCULAR VOLUME 92.7 fL (81-99); MONOCYTES # (AUTO) 0.5 (0.2-0.8); MONOCYTES % 9.4 % (4.4-11.3); NEUTROPHILS # (AUTO) 3.4 (2.1-6.9); NEUTROPHILS % 58.6 % (38.7-80.0); PLATELET COUNT 353 x10e3/uL (140-360); RED BLOOD COUNT 3.85 x10e6/uL (4.3-5.7); RED CELL DISTRIBUTION WIDTH 15.4 % (11.7-14.4); WHITE BLOOD COUNT 5.74 x10e3/uL (4.8-10.8)
[2024-07-25 06:51] LABS: ALBUMIN 2.3 g/dL (3.5-5.0); ALBUMIN/GLOBULIN RATIO 0.7 (0.8-2.0); ANION GAP 12.3 mmol/L (8-16); BILIRUBIN,TOTAL 0.6 mg/dL (0.2-1.2); CALCIUM 8.6 mg/dL (8.4-10.2); CREATININE, SERUM 1.08 mg/dL (0.72-1.25); POTASSIUM 4.3 mmol/L (3.5-5.1); TOTAL PROTEIN 5.8 g/dL (6.5-8.1)
[2024-07-25 11:29] LABS: BASOPHILS % (MANUAL) 1 % (0-1.5); EOSINOPHILS % (MANUAL) 2 % (0-7); LYMPHOCYTES % (MANUAL) 29 % (19-48); NEUTROPHILS % (MANUAL) 68 % (40-74)
[2024-07-25 11:33] LABS: PLATELET ESTIMATE ADEQUATE; PLATELET MORPHOLOGY COMMENT NORMAL; RBC MORPHOLOGY COMMENT NORMAL
[2024-07-25] MEDS: BISACODYL 5 MG TAB EC PO PRN (20:14)
[2024-07-25] MEDS: HYDROCODONE/APAP 10MG-325MG TAB PO PRN (20:14)
[2024-07-26] VITALS: BP 143/70; PULSE 74; RESP 18; TEMP 98.5; O2SAT 97
[2024-07-26 04:00] VITALS: BP 120/73; PULSE 69; RESP 17; TEMP 98.1; O2SAT 98
[2024-07-26 08:00] VITALS: BP 126/64; PULSE 68; RESP 20; TEMP 98; O2SAT 99
[2024-07-26 09:17] VITALS: BP 126/64; PULSE 68; RESP 20; TEMP 98; O2SAT 99
[2024-07-26 12:36] VITALS: BP 136/71; PULSE 67; RESP 20; TEMP 97.9
== END 2024-07-26 16:50 | DRG 854 ==
LOC: ER 11:11 → ERHOLD 13:42 → MED/SURG2 14:07
PROVIDERS: ADMIT Internal Medicine; ATTEND Internal Medicine
PROC: 3E0333Z Introduction of Anti-inflammatory into Peripheral Vein, Percutaneous Approach (ICD-10-PCS; 2024-07-11)
PROC: 0Y9N0ZZ Drainage of Left Foot, Open Approach (ICD-10-PCS; 2024-07-14)
PROC: 0QBM0ZX Excision of Left Tarsal, Open Approach, Diagnostic (ICD-10-PCS; principal; 2024-07-14 07:15)
PROC: 0QBM0ZZ Excision of Left Tarsal, Open Approach (ICD-10-PCS; 2024-07-24)
PROC: 0Y9N0ZX Drainage of Left Foot, Open Approach, Diagnostic (ICD-10-PCS; 2024-07-24)
DX: A41.51 Sepsis due to Escherichia coli [E. coli] (principal); E44.0 Moderate protein-calorie malnutrition; E87.20 Acidosis, unspecified; N17.9 Acute kidney failure, unspecified; L03.116 Cellulitis of left lower limb; L97.528 Non-pressure chronic ulcer of other part of left foot with other specified severity; L02.612 Cutaneous abscess of left foot; M86.172 Other acute osteomyelitis, left ankle and foot; Z16.24 Resistance to multiple antibiotics; E11.621 Type 2 diabetes mellitus with foot ulcer; E11.69 Type 2 diabetes mellitus with other specified complication; E11.22 Type 2 diabetes mellitus with diabetic chronic kidney disease; E11.65 Type 2 diabetes mellitus with hyperglycemia; E11.610 Type 2 diabetes mellitus with diabetic neuropathic arthropathy; E11.42 Type 2 diabetes mellitus with diabetic polyneuropathy; I12.9 Hypertensive chronic kidney disease with stage 1 through stage 4 chronic kidney disease, or unspecified chronic kidney disease; I95.9 Hypotension, unspecified; N18.31 Chronic kidney disease, stage 3a; E86.0 Dehydration; E78.5 Hyperlipidemia, unspecified; R53.81 Other malaise; G47.33 Obstructive sleep apnea (adult) (pediatric); R61 Generalized hyperhidrosis; E66.01 Morbid (severe) obesity due to excess calories; Z68.37 Body mass index [BMI] 37.0-37.9, adult; Z79.84 Long term (current) use of oral hypoglycemic drugs; Z85.47 Personal history of malignant neoplasm of testis; Z98.84 Bariatric surgery status; Z95.828 Presence of other vascular implants and grafts; Z90.79 Acquired absence of other genital organ(s)
CPT/HCPCS: 36415; 71045; 80053; 81001; 82550; 82948; 83605; 83735; 84484; 85025; 85610; 85651; 85730; 87040; 87071; 87075; 87186; 87205; 88304; 88305; 93005; 99252; 99284; J0696; J1100; J2001; J2185; J2405; J2710; J2997; J7030; J7050; Q9967

== ENCOUNTER → 2025-01-15 | Outpatient (REF) | payer BC ==
[~2025-01-15] MED LIST changes: +TESTOSTERONE200 MG IM
== END ==
LOC: DX 07:56
PROVIDERS: ATTEND Internal Medicine Infectious Disease
DX: M86.272 Subacute osteomyelitis, left ankle and foot (principal)
CPT/HCPCS: 36569; 71045

== ENCOUNTER 2025-03-11 00:17 | Inpatient (IN) | payer BC ==
[2025-03-11] VITALS (42 sets, daily range): BP systolic 130–192; BP diastolic 65–127; PULSE 76–97; RESP 10–24; TEMP 98.3–99.3; O2SAT 94–100
[~2025-03-11] VITALS: Ht 195.6 cm; Wt 141.5 kg
[2025-03-11] MEDS ORDERED: DEXTROSE 5% 1,000 ML IV ONE (00:44)
[2025-03-11] MEDS ORDERED: DEXTROSE 50% SYRINGE 50 ML IV ONE (00:44)
[2025-03-11] MEDS ORDERED: DEXTROSE 5%/0.45% SOD CHL 1,000 ML IV SCH (00:45)
[2025-03-11 00:53] LABS: BASOPHILS % 0.4 % (0.0-1.0); EOSINOPHILS # (AUTO) 0.1 (0.0-0.4); EOSINOPHILS % 0.5 % (0.0-6.0); HEMATOCRIT 42.2 % (38.2-49.6); HEMOGLOBIN 13.8 g/dL (14.0-18.0); LYMPHOCYTES # (AUTO) 0.9 (1.0-3.2); MEAN CORPUSCULAR HEMOGLOBIN 29.1 pg (28-32); MEAN CORPUSCULAR HGB CONC 32.7 g/dL (31-35); MONOCYTES # (AUTO) 0.8 (0.2-0.8); MONOCYTES % 6.7 % (4.4-11.3); NEUTROPHILS # (AUTO) 9.3 (2.1-6.9); NEUTROPHILS % 82.8 % (38.7-80.0); PLATELET COUNT 208 x10e3/uL (140-360); RED BLOOD COUNT 4.74 x10e6/uL (4.3-5.7); RED CELL DISTRIBUTION WIDTH 16.6 % (11.7-14.4); WHITE BLOOD COUNT 11.27 x10e3/uL (4.8-10.8)
[2025-03-11] MEDS: DEXTROSE 50% SYRINGE 50 ML IV STA ×2 (00:55→06:03)
[2025-03-11 01:17] LABS: ALBUMIN/GLOBULIN RATIO 0.8 (0.8-2.0); ANION GAP 20.1 mmol/L (8-16); BILIRUBIN,TOTAL 0.5 mg/dL (0.2-1.2); CALCIUM 8.3 mg/dL (8.4-10.2); CREATININE, SERUM 10.63 mg/dL (0.72-1.25); POTASSIUM 4.1 mmol/L (3.5-5.1); TOTAL PROTEIN 6.7 g/dL (6.5-8.1)
[2025-03-11] MEDS: DEXTROSE 5% 1,000 ML IV SCH (01:17)
[2025-03-11] MEDS: SODIUM CHLORIDE 0.9% 1000ML 1,000 ML IV ONE (01:32)
[2025-03-11] MEDS ORDERED: SODIUM BICARBONATE 8.4% SYRING 150 ML ONE (01:41)
[2025-03-11] MEDS: MUPIROCIN 2% OINT 22 GM TUBE TOP SCH (01:45)
[2025-03-11] MEDS: SODIUM BICARBONATE 8.4% SYRING 150 ML in DEXTROSE 5% 1,000 ML IV SCH (02:01)
[2025-03-11] MEDS: GLUCAGON FOR INJ 1 MG VIAL IV ONE (02:06)
[2025-03-11] MEDS: ONDANSETRON HCL INJ 2MG/ML 2ML 2 MG/ML VIAL IV STA (02:13)
[2025-03-11 03:06] LABS: CLARITY,URINE CLOUDY (CLEAR); COLOR,URINE YELLOW (YELLOW); LEUKOCYTE ESTERASE ,URINE NEGATIVE (NEGATIVE); NITRITE,URINE NEGATIVE (NEGATIVE); PH,URINE 5.5 (5 - 7)
[2025-03-11 03:07] LABS: BILIRUBIN,URINE NEGATIVE (NEGATIVE); GLUCOSE, URINE NEGATIVE (NEGATIVE); KETONES,URINE NEGATIVE (NEGATIVE); PROTEIN,URINE DIPSTICK >=300 (NEGATIVE); URINE UROBILINOGEN 0.2 mg/dL (0.2 - 1)
[2025-03-11 03:25] LABS: BACTERIA,URINE MANY /HPF; EPITHELIAL CELLS,URINE FEW /LPF; RBC,URINE >50 /HPF (0-5); RENAL EPITHELIAL CELLS,URINE FEW; TRANSITIONAL EPI CELLS,URINE MANY; WBC,URINE (MAN) 21-50 /HPF (0-5)
[2025-03-11 03:26] LABS: AMORPHOUS SEDIMENT,URINE MODERATE
[2025-03-11] MEDS: DEXTROSE 50% SYRINGE 50 ML IV ONE (04:26)
[2025-03-11] MEDS: DEXTROSE 50% SYRINGE 50 ML IV PRN (06:19)
[2025-03-11 07:39] LABS: ABG HCO3 12 mmol/L (22-26); ABG PCO2 25 mmHg (35-45); ABG PH 7.28 (7.35-7.45); ABG PO2 108 mmHg (80-105); ABG TCO2 12
[2025-03-11 07:46] LABS: ALBUMIN 2.5 g/dL (3.5-5.0); ALBUMIN/GLOBULIN RATIO 0.7 (0.8-2.0); ANION GAP 22.5 mmol/L (8-16); BILIRUBIN,TOTAL 0.5 mg/dL (0.2-1.2); CALCIUM 7.7 mg/dL (8.4-10.2); CREATININE, SERUM 11.08 mg/dL (0.72-1.25); POTASSIUM 4.5 mmol/L (3.5-5.1); TOTAL PROTEIN 6.1 g/dL (6.5-8.1)
[2025-03-11] MEDS: VANCOMYCIN HCL 125 MG CAPSULE PO SCH (08:17)
[2025-03-11] MEDS: AMLODIPINE BESYLATE 5 MG TAB PO SCH (08:43)
[2025-03-11] MEDS: HEPARIN SOD (PORCINE) 5,000 UNIT/ML VIAL SC SCH (08:45)
[2025-03-11 10:34] LABS: CDIFF AG QUIK CHEK NEGATIVE (NEGATIVE); CDIFF TOX QUIK CHEK NEGATIVE (NEGATIVE)
[2025-03-11 12:54] LABS: ANION GAP 21.5 mmol/L (8-16); CALCIUM 7.7 mg/dL (8.4-10.2); CREATININE, SERUM 11.39 mg/dL (0.72-1.25); PHOSPHORUS 4.6 MG/DL (2.3-4.7); POTASSIUM 4.5 mmol/L (3.5-5.1)
[2025-03-11 15:25] LABS: CREATININE,URINE RANDOM 64.6 mg/dL (63-166); TOTAL PROTEIN, URINE 166.4 mg/dL (1-14)
[2025-03-11] MEDS: HYDRALAZINE HCL 20 MG/ML VIAL IV PRN (16:07)
[2025-03-11 16:29] LABS: ANION GAP 23.2 mmol/L (8-16); CALCIUM 7.9 mg/dL (8.4-10.2); CREATININE, SERUM 11.4 mg/dL (0.72-1.25); POTASSIUM 4.2 mmol/L (3.5-5.1)
[2025-03-11] MEDS: SIMVASTATIN 20 MG TAB PO SCH (20:29)
[2025-03-12] VITALS (32 sets, daily range): BP systolic 122–205; BP diastolic 58–100; PULSE 75–108; RESP 11–25; TEMP 98–99.3; O2SAT 93–98
[2025-03-12] MEDS: ACETAMINOPHEN 325 MG TAB PO PRN (05:23)
[2025-03-12 07:02] LABS: BASOPHILS # (AUTO) 0.1 (0.0-0.1); BASOPHILS % 0.6 % (0.0-1.0); EOSINOPHILS # (AUTO) 0.2 (0.0-0.4); EOSINOPHILS % 2.3 % (0.0-6.0); HEMATOCRIT 37.9 % (38.2-49.6); HEMOGLOBIN 12.8 g/dL (14.0-18.0); LYMPHOCYTES # (AUTO) 0.6 (1.0-3.2); LYMPHOCYTES % 7.4 % (18.0-39.1); MEAN CORPUSCULAR HEMOGLOBIN 29.4 pg (28-32); MEAN CORPUSCULAR HGB CONC 33.8 g/dL (31-35); MEAN CORPUSCULAR VOLUME 86.9 fL (81-99); MONOCYTES # (AUTO) 0.8 (0.2-0.8); MONOCYTES % 9.3 % (4.4-11.3); NEUTROPHILS # (AUTO) 6.5 (2.1-6.9); NEUTROPHILS % 79.1 % (38.7-80.0); PLATELET COUNT 197 x10e3/uL (140-360); RED BLOOD COUNT 4.36 x10e6/uL (4.3-5.7); RED CELL DISTRIBUTION WIDTH 16.8 % (11.7-14.4); WHITE BLOOD COUNT 8.26 x10e3/uL (4.8-10.8)
[2025-03-12 07:33] LABS: ALBUMIN 2.5 g/dL (3.5-5.0); ALBUMIN/GLOBULIN RATIO 0.8 (0.8-2.0); ANION GAP 19.7 mmol/L (8-16); BILIRUBIN,TOTAL 0.6 mg/dL (0.2-1.2); CALCIUM 7.4 mg/dL (8.4-10.2); CREATININE, SERUM 12.17 mg/dL (0.72-1.25); MAGNESIUM 1.8 MG/DL (1.3-2.1); POTASSIUM 3.7 mmol/L (3.5-5.1); TOTAL PROTEIN 5.8 g/dL (6.5-8.1)
[2025-03-12] MEDS: FLUTICASONE PROPIONATE NASAL SPRAY NS SCH (08:19)
[2025-03-12] MEDS: METOPROLOL TARTRATE 25 MG TAB PO SCH (10:23)
[2025-03-12] MEDS: HYDROMORPHONE 1MG/1ML INJ IV ONE (10:24)
[2025-03-12] MEDS: MIDAZOLAM HCL 2 MG/2 ML VIAL ONE (13:42)
[2025-03-12] MEDS: LIDOCAINE HCL 2% LOCAL INJ 5 ML SDV VIAL INJ ONE ×3 (13:43→13:44)
[2025-03-12] MEDS: MIDAZOLAM HCL 2 MG/2 ML VIAL IV ONE (13:43)
[2025-03-12] MEDS: MUPIROCIN 2% OINT 22 GM TUBE TOP SCH (14:03)
[2025-03-12] MEDS ORDERED: SODIUM CHLORIDE 0.9% 1000ML 2,000 ML IV PRN (17:30)
[2025-03-12] MEDS ORDERED: HEPARIN SOD (PORCINE) 1000 UNIT/ML SDV IV PRN ×2 (17:30)
[2025-03-12] MEDS ORDERED: MANNITOL 25% 12.5GM/50 ML VIAL IV PRN (17:30)
[2025-03-12] MEDS: HYDROMORPHONE 2MG/ML IV PRN (18:54)
[2025-03-12] MEDS: SODIUM CHLORIDE 0.9% 1000ML 1,000 ML IV ONE (20:01)
[2025-03-13] VITALS (19 sets, daily range): BP systolic 127–167; BP diastolic 60–124; PULSE 71–94; RESP 13–23; TEMP 98.2–99; O2SAT 84–99
[2025-03-13 06:54] LABS: BASOPHILS % 0.5 % (0.0-1.0); EOSINOPHILS # (AUTO) 0.2 (0.0-0.4); EOSINOPHILS % 2.8 % (0.0-6.0); HEMOGLOBIN 13.2 g/dL (14.0-18.0); LYMPHOCYTES # (AUTO) 0.6 (1.0-3.2); LYMPHOCYTES % 6.9 % (18.0-39.1); MEAN CORPUSCULAR HEMOGLOBIN 29.9 pg (28-32); MEAN CORPUSCULAR HGB CONC 33.8 g/dL (31-35); MEAN CORPUSCULAR VOLUME 88.2 fL (81-99); MONOCYTES # (AUTO) 0.9 (0.2-0.8); MONOCYTES % 10.2 % (4.4-11.3); NEUTROPHILS # (AUTO) 6.6 (2.1-6.9); NEUTROPHILS % 77.6 % (38.7-80.0); PLATELET COUNT 203 x10e3/uL (140-360); RED BLOOD COUNT 4.42 x10e6/uL (4.3-5.7); RED CELL DISTRIBUTION WIDTH 17.3 % (11.7-14.4); WHITE BLOOD COUNT 8.49 x10e3/uL (4.8-10.8)
[2025-03-13 07:34] LABS: ANION GAP 20.1 mmol/L (8-16); CALCIUM 7.8 mg/dL (8.4-10.2); CREATININE, SERUM 10.63 mg/dL (0.72-1.25); PHOSPHORUS 4.9 MG/DL (2.3-4.7); POTASSIUM 4.1 mmol/L (3.5-5.1)
[2025-03-13] MEDS: SEVELAMER CARBONATE 800 MG TAB PO SCH (09:22)
[2025-03-13] MEDS: ONDANSETRON HCL INJ 2MG/ML 2ML 2 MG/ML VIAL IV PRN (12:24)
[2025-03-13 12:37] LABS: ANTI DNA DS ANTIBODY <1 IU/mL (0-9)
[2025-03-13 12:49] LABS: COMPLEMENT C3 123; COMPLEMENT C4 31
[2025-03-13 15:13] LABS: cANCA TITER <1:20 titer (Neg:<1:20)
[2025-03-13 15:13] LABS: ALBUMIN,URINE PEP 48.4 % (.); ALPHA 1 GLOBULIN URINE PEP 2.4 % (.); ALPHA 2 GLOBULIN URINE PEP 13.7 % (.); BETA GLOBULIN URINE PEP 15.6 % (.); GAMMA GLOBULIN URINE PEP 19.9 % (.); M-SPIKE % Not Observed % (Not Observed); PROTEIN URINE PEP 140.2 mg/dL (Not Estab.)
[2025-03-13 15:41] LABS: ATYPICAL pANCA TITER <1:20 titer (Neg:<1:20); pANCA TITER <1:20 titer (Neg:<1:20)
[2025-03-14] VITALS (15 sets, daily range): BP systolic 98–167; BP diastolic 64–90; PULSE 79–96; RESP 11–21; TEMP 97.9–98.6; O2SAT 93–99
[2025-03-14 06:22] LABS: BASOPHILS # (AUTO) 0.1 (0.0-0.1); BASOPHILS % 0.7 % (0.0-1.0); EOSINOPHILS # (AUTO) 0.2 (0.0-0.4); EOSINOPHILS % 3.3 % (0.0-6.0); HEMATOCRIT 36.4 % (38.2-49.6); HEMOGLOBIN 12.2 g/dL (14.0-18.0); LYMPHOCYTES # (AUTO) 0.9 (1.0-3.2); LYMPHOCYTES % 12.3 % (18.0-39.1); MEAN CORPUSCULAR HEMOGLOBIN 29.6 pg (28-32); MEAN CORPUSCULAR HGB CONC 33.5 g/dL (31-35); MEAN CORPUSCULAR VOLUME 88.3 fL (81-99); MONOCYTES # (AUTO) 0.9 (0.2-0.8); NEUTROPHILS # (AUTO) 5.1 (2.1-6.9); NEUTROPHILS % 69.9 % (38.7-80.0); PLATELET COUNT 201 x10e3/uL (140-360); RED BLOOD COUNT 4.12 x10e6/uL (4.3-5.7); RED CELL DISTRIBUTION WIDTH 17.2 % (11.7-14.4); WHITE BLOOD COUNT 7.26 x10e3/uL (4.8-10.8)
[2025-03-14 06:57] LABS: ALBUMIN 2.5 g/dL (3.5-5.0); ALBUMIN/GLOBULIN RATIO 0.8 (0.8-2.0); ANION GAP 17.7 mmol/L (8-16); BILIRUBIN,TOTAL 0.6 mg/dL (0.2-1.2); CALCIUM 7.6 mg/dL (8.4-10.2); POTASSIUM 3.7 mmol/L (3.5-5.1); TOTAL PROTEIN 5.7 g/dL (6.5-8.1)
[2025-03-14 15:54] LABS: HEPATITIS B SURFACE AB QUANT <3.5 mIU/mL (Immunity>10); HEPATITIS B SURFACE AG (P) Negative (Negative)
[2025-03-14] MEDS: AMLODIPINE BESYLATE 5 MG TAB PO SCH (17:03)
[2025-03-14] MEDS: METOPROLOL TARTRATE 25 MG TAB PO SCH (17:04)
[2025-03-15] VITALS (9 sets, daily range): BP systolic 144–167; BP diastolic 73–88; PULSE 72–87; RESP 18–20; TEMP 98–98.3; O2SAT 94–99
[2025-03-15 05:57] LABS: HEPATITIS B SURFACE AB QUANT <3.5 mIU/mL (Immunity>10); HEPATITIS B SURFACE AG (P) Negative (Negative)
[2025-03-15 06:55] LABS: BASOPHILS % 0.6 % (0.0-1.0); EOSINOPHILS # (AUTO) 0.2 (0.0-0.4); EOSINOPHILS % 3.1 % (0.0-6.0); HEMATOCRIT 35.5 % (38.2-49.6); HEMOGLOBIN 11.7 g/dL (14.0-18.0); LYMPHOCYTES % 14.2 % (18.0-39.1); MEAN CORPUSCULAR HEMOGLOBIN 29.3 pg (28-32); MONOCYTES # (AUTO) 0.9 (0.2-0.8); MONOCYTES % 13.1 % (4.4-11.3); NEUTROPHILS # (AUTO) 4.5 (2.1-6.9); NEUTROPHILS % 67.1 % (38.7-80.0); PLATELET COUNT 197 x10e3/uL (140-360); RED BLOOD COUNT 3.99 x10e6/uL (4.3-5.7); RED CELL DISTRIBUTION WIDTH 16.8 % (11.7-14.4); WHITE BLOOD COUNT 6.74 x10e3/uL (4.8-10.8)
[2025-03-15 07:44] LABS: ALBUMIN 2.5 g/dL (3.5-5.0); ALBUMIN/GLOBULIN RATIO 0.8 (0.8-2.0); ANION GAP 15.7 mmol/L (8-16); BILIRUBIN,TOTAL 0.5 mg/dL (0.2-1.2); CALCIUM 7.8 mg/dL (8.4-10.2); CREATININE, SERUM 6.46 mg/dL (0.72-1.25); POTASSIUM 3.7 mmol/L (3.5-5.1); TOTAL PROTEIN 5.6 g/dL (6.5-8.1)
[2025-03-15] MEDS: BISMUTH SUBSALICYLATE 262 MG TAB PO PRN (19:44)
[2025-03-16] VITALS (10 sets, daily range): BP systolic 143–177; BP diastolic 70–100; PULSE 64–90; RESP 18–20; TEMP 98.2–98.7; O2SAT 95–98
[2025-03-16 06:05] LABS: BASOPHILS # (AUTO) 0.1 (0.0-0.1); EOSINOPHILS # (AUTO) 0.2 (0.0-0.4); EOSINOPHILS % 2.7 % (0.0-6.0); HEMATOCRIT 37.3 % (38.2-49.6); HEMOGLOBIN 12.1 g/dL (14.0-18.0); LYMPHOCYTES # (AUTO) 1.1 (1.0-3.2); LYMPHOCYTES % 15.6 % (18.0-39.1); MEAN CORPUSCULAR HEMOGLOBIN 29.2 pg (28-32); MEAN CORPUSCULAR HGB CONC 32.4 g/dL (31-35); MEAN CORPUSCULAR VOLUME 89.9 fL (81-99); MONOCYTES # (AUTO) 0.7 (0.2-0.8); MONOCYTES % 10.1 % (4.4-11.3); NEUTROPHILS # (AUTO) 4.8 (2.1-6.9); NEUTROPHILS % 68.6 % (38.7-80.0); PLATELET COUNT 212 x10e3/uL (140-360); RED BLOOD COUNT 4.15 x10e6/uL (4.3-5.7); RED CELL DISTRIBUTION WIDTH 16.7 % (11.7-14.4)
[2025-03-16 06:20] LABS: ANION GAP 17.9 mmol/L (8-16); CALCIUM 8.1 mg/dL (8.4-10.2); CREATININE, SERUM 7.65 mg/dL (0.72-1.25); MAGNESIUM 2.1 MG/DL (1.3-2.1); PHOSPHORUS 3.8 MG/DL (2.3-4.7); POTASSIUM 3.9 mmol/L (3.5-5.1)
[2025-03-16] MEDS ORDERED: SODIUM CHLORIDE 0.9% 1000ML 2,000 ML IV PRN (16:00)
[2025-03-16] MEDS ORDERED: HEPARIN SOD (PORCINE) 1000 UNIT/ML SDV IV PRN (16:00)
[2025-03-16] MEDS ORDERED: ALBUMIN 25% 12.5GM 0.25 GM/ML BTL IV PRN (16:00)
[2025-03-17] VITALS (11 sets, daily range): BP systolic 145–170; BP diastolic 82–92; PULSE 58–87; RESP 17–20; TEMP 98–98.4; O2SAT 95–100
[2025-03-17 06:57] LABS: ANION GAP 15.8 mmol/L (8-16); CALCIUM 8.4 mg/dL (8.4-10.2); CREATININE, SERUM 5.75 mg/dL (0.72-1.25); POTASSIUM 3.8 mmol/L (3.5-5.1)
[2025-03-17] MEDS: DIPHENOXYLATE/ATROPINE TAB PO PRN (10:23)
[2025-03-17] MEDS: INSULIN LISPRO 100 UNIT/1 ML 3ML VIAL SQ SCH (16:30)
[2025-03-18] VITALS (10 sets, daily range): BP systolic 154–182; BP diastolic 71–96; PULSE 66–89; RESP 17–20; TEMP 97.8–98.4; O2SAT 96–100
[2025-03-18 08:47] LABS: BASOPHILS # (AUTO) 0.1 (0.0-0.1); BASOPHILS % 0.6 % (0.0-1.0); EOSINOPHILS # (AUTO) 0.3 (0.0-0.4); EOSINOPHILS % 3.2 % (0.0-6.0); HEMATOCRIT 40.3 % (38.2-49.6); LYMPHOCYTES # (AUTO) 1.3 (1.0-3.2); LYMPHOCYTES % 16.8 % (18.0-39.1); MEAN CORPUSCULAR HEMOGLOBIN 29.2 pg (28-32); MEAN CORPUSCULAR HGB CONC 32.3 g/dL (31-35); MEAN CORPUSCULAR VOLUME 90.6 fL (81-99); MONOCYTES # (AUTO) 0.6 (0.2-0.8); MONOCYTES % 7.9 % (4.4-11.3); NEUTROPHILS # (AUTO) 5.5 (2.1-6.9); NEUTROPHILS % 69.8 % (38.7-80.0); PLATELET COUNT 263 x10e3/uL (140-360); RED BLOOD COUNT 4.45 x10e6/uL (4.3-5.7); RED CELL DISTRIBUTION WIDTH 16.5 % (11.7-14.4); WHITE BLOOD COUNT 7.86 x10e3/uL (4.8-10.8)
[2025-03-18 09:24] LABS: ALBUMIN 3.4 g/dL (3.5-5.0); BILIRUBIN,TOTAL 0.5 mg/dL (0.2-1.2); CALCIUM 8.8 mg/dL (8.4-10.2); CREATININE, SERUM 7.03 mg/dL (0.72-1.25); TOTAL PROTEIN 6.7 g/dL (6.5-8.1)
[2025-03-18] MEDS: HYDRALAZINE HCL 25 MG TAB PO SCH (16:54)
[2025-03-18] MEDS: METOPROLOL TARTRATE 25 MG TAB PO SCH (16:54)
[2025-03-18] MEDS ORDERED: HYDRALAZINE HCL 100 MG TABLET PO SCH (17:00)
[2025-03-19] VITALS (11 sets, daily range): BP systolic 152–175; BP diastolic 70–89; PULSE 60–78; RESP 17–20; TEMP 97.9–99; O2SAT 97–99
[2025-03-19 06:12] LABS: BASOPHILS # (AUTO) 0.1 (0.0-0.1); BASOPHILS % 0.8 % (0.0-1.0); EOSINOPHILS # (AUTO) 0.2 (0.0-0.4); EOSINOPHILS % 2.6 % (0.0-6.0); HEMATOCRIT 36.5 % (38.2-49.6); HEMOGLOBIN 11.8 g/dL (14.0-18.0); LYMPHOCYTES # (AUTO) 1.2 (1.0-3.2); LYMPHOCYTES % 14.3 % (18.0-39.1); MEAN CORPUSCULAR HEMOGLOBIN 29.4 pg (28-32); MEAN CORPUSCULAR HGB CONC 32.3 g/dL (31-35); MEAN CORPUSCULAR VOLUME 90.8 fL (81-99); MONOCYTES # (AUTO) 0.7 (0.2-0.8); MONOCYTES % 7.8 % (4.4-11.3); NEUTROPHILS # (AUTO) 6.2 (2.1-6.9); NEUTROPHILS % 72.6 % (38.7-80.0); PLATELET COUNT 225 x10e3/uL (140-360); RED BLOOD COUNT 4.02 x10e6/uL (4.3-5.7); RED CELL DISTRIBUTION WIDTH 16.2 % (11.7-14.4); WHITE BLOOD COUNT 8.49 x10e3/uL (4.8-10.8)
[2025-03-19 06:25] LABS: ANION GAP 17.1 mmol/L (8-16); CALCIUM 8.3 mg/dL (8.4-10.2); CREATININE, SERUM 7.27 mg/dL (0.72-1.25); POTASSIUM 4.1 mmol/L (3.5-5.1)
[2025-03-19] MEDS ORDERED: ALBUMIN 25% 12.5GM 50ML 50 ML IV PRN (14:00)
[2025-03-19] MEDS ORDERED: SODIUM CHLORIDE 0.9% 1000ML 2,000 ML IV PRN (14:00)
[2025-03-20] VITALS (11 sets, daily range): BP systolic 132–171; BP diastolic 63–84; PULSE 60–74; RESP 19–22; TEMP 97.7–98.8; O2SAT 95–99
[2025-03-20 07:16] LABS: BASOPHILS # (AUTO) 0.1 (0.0-0.1); BASOPHILS % 0.9 % (0.0-1.0); EOSINOPHILS # (AUTO) 0.2 (0.0-0.4); HEMATOCRIT 41.9 % (38.2-49.6); HEMOGLOBIN 13.4 g/dL (14.0-18.0); LYMPHOCYTES # (AUTO) 1.4 (1.0-3.2); LYMPHOCYTES % 18.4 % (18.0-39.1); MEAN CORPUSCULAR HEMOGLOBIN 29.3 pg (28-32); MEAN CORPUSCULAR VOLUME 91.5 fL (81-99); MONOCYTES # (AUTO) 0.6 (0.2-0.8); MONOCYTES % 7.4 % (4.4-11.3); NEUTROPHILS # (AUTO) 5.2 (2.1-6.9); NEUTROPHILS % 68.2 % (38.7-80.0); PLATELET COUNT 254 x10e3/uL (140-360); RED BLOOD COUNT 4.58 x10e6/uL (4.3-5.7); WHITE BLOOD COUNT 7.66 x10e3/uL (4.8-10.8)
[2025-03-20 07:29] LABS: PROTHROMBIN TIME 14.1 seconds (11.9-14.5)
[2025-03-20 07:30] LABS: PARTIAL THROMBOPLASTIN TIME 29.7 seconds (23.8-35.5)
[2025-03-20 07:41] LABS: ALBUMIN 3.5 g/dL (3.5-5.0); ANION GAP 18.2 mmol/L (8-16); BILIRUBIN,TOTAL 0.9 mg/dL (0.2-1.2); CALCIUM 8.9 mg/dL (8.4-10.2); CREATININE, SERUM 5.08 mg/dL (0.72-1.25); POTASSIUM 4.2 mmol/L (3.5-5.1); TOTAL PROTEIN 7.1 g/dL (6.5-8.1)
[2025-03-20] MEDS: FUROSEMIDE 20 MG TAB PO SCH (17:14)
[2025-03-21] VITALS (10 sets, daily range): BP systolic 132–176; BP diastolic 63–96; PULSE 57–66; RESP 18–20; TEMP 97–98.7; O2SAT 97–100
[2025-03-21 06:25] LABS: ANION GAP 15.9 mmol/L (8-16); CALCIUM 8.6 mg/dL (8.4-10.2); CREATININE, SERUM 5.13 mg/dL (0.72-1.25); PHOSPHORUS 3.7 MG/DL (2.3-4.7); POTASSIUM 3.9 mmol/L (3.5-5.1)
[2025-03-21] MEDS ORDERED: HEPARIN SOD (PORCINE) 1000 UNIT/ML SDV IV PRN (10:00)
[2025-03-21] MEDS: HEPARIN SOD (PORCINE) 1000 UNIT/ML SDV IV PRN (13:02)
[2025-03-22] VITALS (8 sets, daily range): BP systolic 146–155; BP diastolic 72–86; PULSE 57–82; RESP 17–20; TEMP 97.9–98.2; O2SAT 96–100
[2025-03-22 07:03] LABS: BASOPHILS # (AUTO) 0.1 (0.0-0.1); BASOPHILS % 0.9 % (0.0-1.0); EOSINOPHILS # (AUTO) 0.2 (0.0-0.4); EOSINOPHILS % 3.3 % (0.0-6.0); HEMATOCRIT 38.3 % (38.2-49.6); HEMOGLOBIN 12.3 g/dL (14.0-18.0); LYMPHOCYTES # (AUTO) 1.2 (1.0-3.2); LYMPHOCYTES % 17.6 % (18.0-39.1); MEAN CORPUSCULAR HEMOGLOBIN 29.4 pg (28-32); MEAN CORPUSCULAR HGB CONC 32.1 g/dL (31-35); MEAN CORPUSCULAR VOLUME 91.6 fL (81-99); MONOCYTES # (AUTO) 0.7 (0.2-0.8); MONOCYTES % 9.7 % (4.4-11.3); NEUTROPHILS # (AUTO) 4.5 (2.1-6.9); NEUTROPHILS % 67.2 % (38.7-80.0); PLATELET COUNT 201 x10e3/uL (140-360); RED BLOOD COUNT 4.18 x10e6/uL (4.3-5.7); RED CELL DISTRIBUTION WIDTH 15.6 % (11.7-14.4)
[2025-03-22 07:32] LABS: ANION GAP 14.9 mmol/L (8-16); BILIRUBIN,TOTAL 0.7 mg/dL (0.2-1.2); CALCIUM 8.6 mg/dL (8.4-10.2); CREATININE, SERUM 4.13 mg/dL (0.72-1.25); POTASSIUM 3.9 mmol/L (3.5-5.1)
[2025-03-22 07:52] LABS: ALBUMIN 3.3 g/dL (3.5-5.0); ALBUMIN/GLOBULIN RATIO 1.1 (0.8-2.0); TOTAL PROTEIN 6.4 g/dL (6.5-8.1)
[2025-03-22 10:17] LABS: SPE ALPHA 1 GLOBULIN 0.2
[2025-03-22 10:18] LABS: SPE ALPHA 2 GLOBULIN 0.8; SPE GAMMA GLOBULIN 0.6
[2025-03-22 10:19] LABS: SPE TOTAL PROTEIN 5.8
[2025-03-22 10:23] LABS: GLOBULIN TOTAL 2.4; KAPPA LIGHT CHAINS 91.1
[2025-03-22 10:24] LABS: LAMBDA LIGHT CHAINS 82.5
[2025-03-22 10:29] LABS: A/G RATIO 1.4
[2025-03-22] MEDS ORDERED: SODIUM CHLORIDE 0.9% 250ML 250 ML ONE (11:47)
[2025-03-22] MEDS ORDERED: FENTANYL CITRATE/PF 100MCG/2 ML INJ ONE (11:47)
[2025-03-22] MEDS ORDERED: MIDAZOLAM HCL 2 MG/2 ML VIAL ONE (11:47)
[2025-03-22] MEDS: FUROSEMIDE 20 MG TAB PO SCH (14:08)
[2025-03-22] MEDS ORDERED: MOUNJARO12.5 MG/0. (22:28)
[2025-03-23] VITALS (12 sets, daily range): BP systolic 137–158; BP diastolic 65–93; PULSE 62–84; RESP 17–20; TEMP 97.8–98.3; O2SAT 96–99
[2025-03-23 06:25] LABS: ABG HCO3 12 mmol/L (22-26); ABG PCO2 25 mmHg (35-45); ABG PH 7.28 (7.35-7.45); ABG PO2 108 mmHg (80-105); ABG TCO2 12
[2025-03-23 07:11] LABS: BASOPHILS # (AUTO) 0.1 (0.0-0.1); BASOPHILS % 1.1 % (0.0-1.0); EOSINOPHILS # (AUTO) 0.2 (0.0-0.4); EOSINOPHILS % 2.8 % (0.0-6.0); HEMATOCRIT 37.4 % (38.2-49.6); HEMOGLOBIN 12.4 g/dL (14.0-18.0); LYMPHOCYTES # (AUTO) 1.4 (1.0-3.2); LYMPHOCYTES % 19.4 % (18.0-39.1); MEAN CORPUSCULAR HEMOGLOBIN 29.7 pg (28-32); MEAN CORPUSCULAR HGB CONC 33.2 g/dL (31-35); MEAN CORPUSCULAR VOLUME 89.7 fL (81-99); MONOCYTES # (AUTO) 0.7 (0.2-0.8); NEUTROPHILS # (AUTO) 4.7 (2.1-6.9); NEUTROPHILS % 65.4 % (38.7-80.0); PLATELET COUNT 178 x10e3/uL (140-360); RED BLOOD COUNT 4.17 x10e6/uL (4.3-5.7); RED CELL DISTRIBUTION WIDTH 15.9 % (11.7-14.4); WHITE BLOOD COUNT 7.13 x10e3/uL (4.8-10.8)
[2025-03-23 09:33] LABS: ALBUMIN 3.4 g/dL (3.5-5.0); ALBUMIN/GLOBULIN RATIO 1.2 (0.8-2.0); ANION GAP 16.9 mmol/L (8-16); BILIRUBIN,TOTAL 0.7 mg/dL (0.2-1.2); CALCIUM 8.8 mg/dL (8.4-10.2); CREATININE, SERUM 4.21 mg/dL (0.72-1.25); POTASSIUM 3.9 mmol/L (3.5-5.1); TOTAL PROTEIN 6.2 g/dL (6.5-8.1)
[2025-03-24] VITALS (9 sets, daily range): BP systolic 118–179; BP diastolic 65–94; PULSE 60–68; RESP 18–20; TEMP 97.3–98.4; O2SAT 98–100
[2025-03-24 10:00] LABS: ANION GAP 15.8 mmol/L (8-16); CALCIUM 8.8 mg/dL (8.4-10.2); CREATININE, SERUM 3.75 mg/dL (0.72-1.25); POTASSIUM 3.8 mmol/L (3.5-5.1)
[2025-03-25] VITALS (9 sets, daily range): BP systolic 150–162; BP diastolic 80–94; PULSE 63–78; RESP 18–22; TEMP 97.8–98.3; O2SAT 96–100
[2025-03-25 07:03] LABS: BASOPHILS # (AUTO) 0.1 (0.0-0.1); EOSINOPHILS # (AUTO) 0.2 (0.0-0.4); EOSINOPHILS % 3.1 % (0.0-6.0); HEMATOCRIT 37.7 % (38.2-49.6); HEMOGLOBIN 12.5 g/dL (14.0-18.0); LYMPHOCYTES # (AUTO) 1.2 (1.0-3.2); MEAN CORPUSCULAR HEMOGLOBIN 29.6 pg (28-32); MEAN CORPUSCULAR HGB CONC 33.2 g/dL (31-35); MEAN CORPUSCULAR VOLUME 89.3 fL (81-99); MONOCYTES # (AUTO) 0.6 (0.2-0.8); MONOCYTES % 10.1 % (4.4-11.3); NEUTROPHILS % 64.8 % (38.7-80.0); PLATELET COUNT 173 x10e3/uL (140-360); RED BLOOD COUNT 4.22 x10e6/uL (4.3-5.7); RED CELL DISTRIBUTION WIDTH 15.6 % (11.7-14.4); WHITE BLOOD COUNT 6.21 x10e3/uL (4.8-10.8)
[2025-03-25 07:18] LABS: ANION GAP 14.7 mmol/L (8-16); BILIRUBIN,TOTAL 0.8 mg/dL (0.2-1.2); CALCIUM 8.7 mg/dL (8.4-10.2); CREATININE, SERUM 3.62 mg/dL (0.72-1.25); POTASSIUM 3.7 mmol/L (3.5-5.1); TOTAL PROTEIN 6.3 g/dL (6.5-8.1)
[2025-03-25 07:33] LABS: ALBUMIN 3.6 g/dL (3.5-5.0); ALBUMIN/GLOBULIN RATIO 1.3 (0.8-2.0)
[2025-03-25] MEDS: HYDRALAZINE HCL 20 MG/ML VIAL ONE (09:11)
[2025-03-26] VITALS (10 sets, daily range): BP systolic 134–162; BP diastolic 73–88; PULSE 60–71; RESP 18–20; TEMP 97.7–98.2; O2SAT 97–100
[2025-03-26 07:20] LABS: BASOPHILS # (AUTO) 0.1 (0.0-0.1); BASOPHILS % 1.1 % (0.0-1.0); EOSINOPHILS # (AUTO) 0.2 (0.0-0.4); HEMATOCRIT 39.4 % (38.2-49.6); HEMOGLOBIN 12.8 g/dL (14.0-18.0); LYMPHOCYTES # (AUTO) 1.4 (1.0-3.2); LYMPHOCYTES % 21.5 % (18.0-39.1); MEAN CORPUSCULAR HEMOGLOBIN 29.6 pg (28-32); MEAN CORPUSCULAR HGB CONC 32.5 g/dL (31-35); MEAN CORPUSCULAR VOLUME 91.2 fL (81-99); MONOCYTES # (AUTO) 0.6 (0.2-0.8); MONOCYTES % 9.5 % (4.4-11.3); NEUTROPHILS # (AUTO) 4.1 (2.1-6.9); NEUTROPHILS % 64.3 % (38.7-80.0); PLATELET COUNT 161 x10e3/uL (140-360); RED BLOOD COUNT 4.32 x10e6/uL (4.3-5.7); RED CELL DISTRIBUTION WIDTH 15.1 % (11.7-14.4); WHITE BLOOD COUNT 6.43 x10e3/uL (4.8-10.8)
[2025-03-26 07:38] LABS: ALBUMIN 3.7 g/dL (3.5-5.0); ALBUMIN/GLOBULIN RATIO 1.4 (0.8-2.0); ANION GAP 16.7 mmol/L (8-16); BILIRUBIN,TOTAL 0.9 mg/dL (0.2-1.2); CALCIUM 8.8 mg/dL (8.4-10.2); CREATININE, SERUM 3.37 mg/dL (0.72-1.25); POTASSIUM 3.7 mmol/L (3.5-5.1); TOTAL PROTEIN 6.3 g/dL (6.5-8.1)
[2025-03-26] MEDS: SODIUM CHLORIDE 0.9% 1000ML 1,000 ML IV ONE (11:44)
[2025-03-27] VITALS (9 sets, daily range): BP systolic 133–162; BP diastolic 55–90; PULSE 67–76; RESP 16–20; TEMP 97.9–98.2; O2SAT 97–100
[2025-03-27 07:17] LABS: BASOPHILS # (AUTO) 0.1 (0.0-0.1); BASOPHILS % 0.8 % (0.0-1.0); EOSINOPHILS # (AUTO) 0.2 (0.0-0.4); EOSINOPHILS % 3.4 % (0.0-6.0); HEMOGLOBIN 13.2 g/dL (14.0-18.0); LYMPHOCYTES # (AUTO) 1.2 (1.0-3.2); LYMPHOCYTES % 19.9 % (18.0-39.1); MEAN CORPUSCULAR HEMOGLOBIN 29.5 pg (28-32); MEAN CORPUSCULAR VOLUME 89.3 fL (81-99); MONOCYTES # (AUTO) 0.6 (0.2-0.8); MONOCYTES % 9.7 % (4.4-11.3); NEUTROPHILS % 65.4 % (38.7-80.0); PLATELET COUNT 166 x10e3/uL (140-360); RED BLOOD COUNT 4.48 x10e6/uL (4.3-5.7); RED CELL DISTRIBUTION WIDTH 15.1 % (11.7-14.4); WHITE BLOOD COUNT 6.17 x10e3/uL (4.8-10.8)
[2025-03-27 07:44] LABS: ALBUMIN 3.6 g/dL (3.5-5.0); ALBUMIN/GLOBULIN RATIO 1.2 (0.8-2.0); ANION GAP 15.7 mmol/L (8-16); BILIRUBIN,TOTAL 1.3 mg/dL (0.2-1.2); CALCIUM 8.7 mg/dL (8.4-10.2); CREATININE, SERUM 2.82 mg/dL (0.72-1.25); POTASSIUM 3.7 mmol/L (3.5-5.1); TOTAL PROTEIN 6.6 g/dL (6.5-8.1)
[2025-03-28] VITALS (8 sets, daily range): BP systolic 121–160; BP diastolic 61–96; PULSE 66–77; RESP 18–22; TEMP 97.6–98.4; O2SAT 98–100
[2025-03-28 07:06] LABS: BASOPHILS # (AUTO) 0.1 (0.0-0.1); BASOPHILS % 1.5 % (0.0-1.0); EOSINOPHILS # (AUTO) 0.2 (0.0-0.4); EOSINOPHILS % 3.1 % (0.0-6.0); HEMATOCRIT 44.7 % (38.2-49.6); HEMOGLOBIN 14.6 g/dL (14.0-18.0); LYMPHOCYTES # (AUTO) 1.6 (1.0-3.2); LYMPHOCYTES % 23.5 % (18.0-39.1); MEAN CORPUSCULAR HEMOGLOBIN 29.5 pg (28-32); MEAN CORPUSCULAR HGB CONC 32.7 g/dL (31-35); MEAN CORPUSCULAR VOLUME 90.3 fL (81-99); MONOCYTES # (AUTO) 0.7 (0.2-0.8); MONOCYTES % 10.5 % (4.4-11.3); NEUTROPHILS # (AUTO) 4.1 (2.1-6.9); NEUTROPHILS % 60.7 % (38.7-80.0); PLATELET COUNT 195 x10e3/uL (140-360); RED BLOOD COUNT 4.95 x10e6/uL (4.3-5.7); RED CELL DISTRIBUTION WIDTH 15.1 % (11.7-14.4); WHITE BLOOD COUNT 6.69 x10e3/uL (4.8-10.8)
[2025-03-28 07:30] LABS: ALBUMIN 4.2 g/dL (3.5-5.0); ALBUMIN/GLOBULIN RATIO 1.3 (0.8-2.0); ANION GAP 17.8 mmol/L (8-16); BILIRUBIN,TOTAL 1.2 mg/dL (0.2-1.2); CALCIUM 9.6 mg/dL (8.4-10.2); CREATININE, SERUM 2.95 mg/dL (0.72-1.25); POTASSIUM 3.8 mmol/L (3.5-5.1); TOTAL PROTEIN 7.5 g/dL (6.5-8.1)
[2025-03-29 06:46] VITALS: PULSE 74; RESP 20; O2SAT 97
[2025-03-29 07:59] LABS: ALBUMIN 3.7 g/dL (3.5-5.0); ALBUMIN/GLOBULIN RATIO 1.3 (0.8-2.0); ANION GAP 16.9 mmol/L (8-16); BILIRUBIN,TOTAL 1.3 mg/dL (0.2-1.2); CALCIUM 8.9 mg/dL (8.4-10.2); CREATININE, SERUM 2.93 mg/dL (0.72-1.25); POTASSIUM 3.9 mmol/L (3.5-5.1); TOTAL PROTEIN 6.6 g/dL (6.5-8.1)
[2025-03-29 09:00] VITALS: BP 130/58; PULSE 65; RESP 20; TEMP 98; O2SAT 97
[2025-03-29 12:15] VITALS: BP 156/90; PULSE 67; RESP 19; TEMP 97.7; O2SAT 100
[2025-03-29 17:08] VITALS: BP 136/77; PULSE 69; RESP 20; TEMP 98.1; O2SAT 100
[2025-03-29 19:42] VITALS: PULSE 75; RESP 18; O2SAT 98
[2025-03-29 20:00] VITALS: BP 128/58; PULSE 70; RESP 18; TEMP 97.7; O2SAT 98
[2025-03-30] VITALS (8 sets, daily range): BP systolic 127–175; BP diastolic 58–93; PULSE 65–82; RESP 18–20; TEMP 97.5–98.1; O2SAT 98–100
[2025-03-30 07:16] LABS: BASOPHILS # (AUTO) 0.1 (0.0-0.1); BASOPHILS % 1.2 % (0.0-1.0); EOSINOPHILS # (AUTO) 0.2 (0.0-0.4); EOSINOPHILS % 3.4 % (0.0-6.0); HEMATOCRIT 41.2 % (38.2-49.6); HEMOGLOBIN 13.4 g/dL (14.0-18.0); LYMPHOCYTES # (AUTO) 1.4 (1.0-3.2); LYMPHOCYTES % 25.4 % (18.0-39.1); MEAN CORPUSCULAR HEMOGLOBIN 29.8 pg (28-32); MEAN CORPUSCULAR HGB CONC 32.5 g/dL (31-35); MEAN CORPUSCULAR VOLUME 91.6 fL (81-99); MONOCYTES # (AUTO) 0.6 (0.2-0.8); MONOCYTES % 9.8 % (4.4-11.3); NEUTROPHILS # (AUTO) 3.3 (2.1-6.9); NEUTROPHILS % 59.5 % (38.7-80.0); PLATELET COUNT 160 x10e3/uL (140-360); RED CELL DISTRIBUTION WIDTH 14.8 % (11.7-14.4); WHITE BLOOD COUNT 5.62 x10e3/uL (4.8-10.8)
[2025-03-30 07:57] LABS: ALBUMIN 3.7 g/dL (3.5-5.0); ALBUMIN/GLOBULIN RATIO 1.3 (0.8-2.0); ANION GAP 17.9 mmol/L (8-16); BILIRUBIN,TOTAL 1.5 mg/dL (0.2-1.2); CALCIUM 8.9 mg/dL (8.4-10.2); CREATININE, SERUM 2.63 mg/dL (0.72-1.25); POTASSIUM 3.9 mmol/L (3.5-5.1); TOTAL PROTEIN 6.6 g/dL (6.5-8.1)
== END 2025-03-30 21:57 | DRG 683 ==
LOC: ER 00:28 → ERHOLD 01:43 → ICU 03:34 → MED/SURG3 03-14 13:04
PROVIDERS: ADMIT Internal Medicine; ATTEND Internal Medicine
PROC: 5A09357 Assistance with Respiratory Ventilation, Less than 24 Consecutive Hours, Continuous Positive Airway Pressure (ICD-10-PCS; 2025-03-11)
PROC: 4A033R1 Measurement of Arterial Saturation, Peripheral, Percutaneous Approach (ICD-10-PCS; 2025-03-11)
PROC: 4A033R1 Measurement of Arterial Saturation, Peripheral, Percutaneous Approach (ICD-10-PCS; 2025-03-11)
PROC: 05HM33Z Insertion of Infusion Device into Right Internal Jugular Vein, Percutaneous Approach (ICD-10-PCS; principal; 2025-03-12)
PROC: B543ZZA Ultrasonography of Right Jugular Veins, Guidance (ICD-10-PCS; 2025-03-12)
PROC: 5A09357 Assistance with Respiratory Ventilation, Less than 24 Consecutive Hours, Continuous Positive Airway Pressure (ICD-10-PCS; 2025-03-12)
PROC: 2W1TX6Z Compression of Left Foot using Pressure Dressing (ICD-10-PCS; 2025-03-12)
PROC: 5A1D70Z Performance of Urinary Filtration, Intermittent, Less than 6 Hours Per Day (ICD-10-PCS; 2025-03-13)
PROC: 5A09357 Assistance with Respiratory Ventilation, Less than 24 Consecutive Hours, Continuous Positive Airway Pressure (ICD-10-PCS; 2025-03-13)
PROC: 5A1D70Z Performance of Urinary Filtration, Intermittent, Less than 6 Hours Per Day (ICD-10-PCS; 2025-03-14)
PROC: 5A1D70Z Performance of Urinary Filtration, Intermittent, Less than 6 Hours Per Day (ICD-10-PCS; 2025-03-16)
DX: N17.0 Acute kidney failure with tubular necrosis (principal); E87.1 Hypo-osmolality and hyponatremia; E87.20 Acidosis, unspecified; K52.1 Toxic gastroenteritis and colitis; M86.672 Other chronic osteomyelitis, left ankle and foot; L97.429 Non-pressure chronic ulcer of left heel and midfoot with unspecified severity; N10 Acute pyelonephritis; T36.1X5A Adverse effect of cephalosporins and other beta-lactam antibiotics, initial encounter; E11.649 Type 2 diabetes mellitus with hypoglycemia without coma; E11.610 Type 2 diabetes mellitus with diabetic neuropathic arthropathy; T38.3X5A Adverse effect of insulin and oral hypoglycemic [antidiabetic] drugs, initial encounter; Y92.009 Unspecified place in unspecified non-institutional (private) residence as the place of occurrence of the external cause; E86.0 Dehydration; G47.33 Obstructive sleep apnea (adult) (pediatric); E11.69 Type 2 diabetes mellitus with other specified complication; E11.22 Type 2 diabetes mellitus with diabetic chronic kidney disease; I12.9 Hypertensive chronic kidney disease with stage 1 through stage 4 chronic kidney disease, or unspecified chronic kidney disease; N18.9 Chronic kidney disease, unspecified; Z79.84 Long term (current) use of oral hypoglycemic drugs; E66.01 Morbid (severe) obesity due to excess calories; Z68.37 Body mass index [BMI] 37.0-37.9, adult; E11.42 Type 2 diabetes mellitus with diabetic polyneuropathy; Z71.3 Dietary counseling and surveillance; E78.5 Hyperlipidemia, unspecified; R53.81 Other malaise; Z53.09 Procedure and treatment not carried out because of other contraindication; B96.5 Pseudomonas (aeruginosa) (mallei) (pseudomallei) as the cause of diseases classified elsewhere; Z22.39 Carrier of other specified bacterial diseases; Z98.84 Bariatric surgery status; Z85.47 Personal history of malignant neoplasm of testis; Z79.899 Other long term (current) drug therapy; Z79.2 Long term (current) use of antibiotics
CPT/HCPCS: 36415; 36600; 51700; 71045; 74470; 76770; 80048; 80053; 81001; 81015; 82550; 82570; 82805; 82948; 83735; 84100; 84156; 84165; 84166; 84484; 85025; 85610; 85730; 86021; 86160; 86225; 86704; 86706; 87071; 87086; 87186; 87205; 87324; 87340; 87449; 93005; 94660; 94799; 97605; 97606; 99252; 99285; J0360; J0696; J1171; J1610; J1644; J2003; J2150; J2250; J2405; J7030; J7050; J7070; J7799

== ENCOUNTER → 2025-04-16 | Outpatient (REF) | payer BC ==
[~2025-04-16] MED LIST changes: +MOUNJARO12.5 MG/0.
== END ==
LOC: WCC 12:28
PROVIDERS: ATTEND Plastic Surgery
DX: E11.621 Type 2 diabetes mellitus with foot ulcer (principal); L97.426 Non-pressure chronic ulcer of left heel and midfoot with bone involvement without evidence of necrosis

== ENCOUNTER → 2025-04-17 | Outpatient (REF) | payer BC | LOC: RAD 10:31 | PROVIDERS: ATTEND Nurse Practitioner Family | DX: E11.621 Type 2 diabetes mellitus with foot ulcer (principal); L97.426 Non-pressure chronic ulcer of left heel and midfoot with bone involvement without evidence of necrosis | CPT/HCPCS: 71046; 93005 ==

== ENCOUNTER → 2025-04-18 | Outpatient (REF) | payer BC | LOC: WCC 13:54 | PROVIDERS: ATTEND Nurse Practitioner Family | DX: E11.621 Type 2 diabetes mellitus with foot ulcer (principal); L97.426 Non-pressure chronic ulcer of left heel and midfoot with bone involvement without evidence of necrosis; B99.8 Other infectious disease ==

== ENCOUNTER → 2025-04-19 | Outpatient (REF) | payer BC | LOC: CT 13:53 | PROVIDERS: ATTEND Nurse Practitioner Family | DX: E11.621 Type 2 diabetes mellitus with foot ulcer (principal); L97.426 Non-pressure chronic ulcer of left heel and midfoot with bone involvement without evidence of necrosis ==

== ENCOUNTER → 2025-04-20 | Outpatient (REF) | payer BC | LOC: WCC 12:18 | PROVIDERS: ATTEND Nurse Practitioner Family | DX: E11.621 Type 2 diabetes mellitus with foot ulcer (principal); L97.426 Non-pressure chronic ulcer of left heel and midfoot with bone involvement without evidence of necrosis; B99.8 Other infectious disease ==

== ENCOUNTER → 2025-04-24 | Outpatient (REF) | payer BC ==
[~2025-04-24] MED LIST changes: +LIDOCAINE VISC 2% SOLN 15 ML UDC ONE; +LIDOCAINE/PRILOCAINE 2.5-2.5% KIT ONE
== END ==
LOC: WCC 14:19
PROVIDERS: ATTEND Plastic Surgery
DX: E11.621 Type 2 diabetes mellitus with foot ulcer (principal); L97.424 Non-pressure chronic ulcer of left heel and midfoot with necrosis of bone; B99.8 Other infectious disease
CPT/HCPCS: 87071; 87075; 87186; 87205

== ENCOUNTER → 2025-04-26 | Outpatient (REF) | payer BC ==
[~2025-04-26] MED LIST changes: -LIDOCAINE VISC 2% SOLN 15 ML UDC ONE; -LIDOCAINE/PRILOCAINE 2.5-2.5% KIT ONE
== END ==
LOC: WCC 15:16
PROVIDERS: ATTEND Plastic Surgery
DX: E11.621 Type 2 diabetes mellitus with foot ulcer (principal); L97.424 Non-pressure chronic ulcer of left heel and midfoot with necrosis of bone; B99.8 Other infectious disease

== ENCOUNTER → 2025-04-30 | Outpatient (REF) | payer BC | LOC: WCC 10:19 | PROVIDERS: ATTEND Plastic Surgery | DX: E11.621 Type 2 diabetes mellitus with foot ulcer (principal); L97.424 Non-pressure chronic ulcer of left heel and midfoot with necrosis of bone; B99.8 Other infectious disease ==

== ENCOUNTER → 2025-05-01 | Outpatient (REF) | payer BC | LOC: WCC 10:57 | PROVIDERS: ATTEND Plastic Surgery | DX: E11.621 Type 2 diabetes mellitus with foot ulcer (principal); M86.672 Other chronic osteomyelitis, left ankle and foot; L97.424 Non-pressure chronic ulcer of left heel and midfoot with necrosis of bone ==

== ENCOUNTER → 2025-05-02 | Outpatient (REF) | payer BC | LOC: WCC 11:59 | PROVIDERS: ATTEND Nurse Practitioner Family | DX: E11.621 Type 2 diabetes mellitus with foot ulcer (principal); L97.424 Non-pressure chronic ulcer of left heel and midfoot with necrosis of bone; B99.8 Other infectious disease | CPT/HCPCS: 11042; 97605; 99212; G0277 ==

== ENCOUNTER → 2025-05-03 | Outpatient (REF) | payer BC | LOC: WCC 09:54 | PROVIDERS: ATTEND Plastic Surgery | DX: E11.621 Type 2 diabetes mellitus with foot ulcer (principal); M86.672 Other chronic osteomyelitis, left ankle and foot; L97.424 Non-pressure chronic ulcer of left heel and midfoot with necrosis of bone ==

== ENCOUNTER → 2025-05-04 | Outpatient (REF) | payer BC | LOC: WCC 10:04 | PROVIDERS: ATTEND Plastic Surgery | DX: E11.621 Type 2 diabetes mellitus with foot ulcer (principal); M86.672 Other chronic osteomyelitis, left ankle and foot; L97.424 Non-pressure chronic ulcer of left heel and midfoot with necrosis of bone; M14.672 Charcot's joint, left ankle and foot; B95.4 Other streptococcus as the cause of diseases classified elsewhere; B96.5 Pseudomonas (aeruginosa) (mallei) (pseudomallei) as the cause of diseases classified elsewhere | CPT/HCPCS: 97605; 99212; G0277 ==

== ENCOUNTER → 2025-05-07 | Outpatient (REF) | payer BC | LOC: WCC 11:06 | PROVIDERS: ATTEND Plastic Surgery | DX: E11.621 Type 2 diabetes mellitus with foot ulcer (principal); L97.424 Non-pressure chronic ulcer of left heel and midfoot with necrosis of bone; B95.4 Other streptococcus as the cause of diseases classified elsewhere; B96.5 Pseudomonas (aeruginosa) (mallei) (pseudomallei) as the cause of diseases classified elsewhere ==

== ENCOUNTER → 2025-05-08 | Outpatient (REF) | payer BC | LOC: WCC 15:00 | PROVIDERS: ATTEND Nurse Practitioner Family | DX: E11.621 Type 2 diabetes mellitus with foot ulcer (principal); M86.672 Other chronic osteomyelitis, left ankle and foot; L97.424 Non-pressure chronic ulcer of left heel and midfoot with necrosis of bone ==

== ENCOUNTER → 2025-05-09 | Outpatient (REF) | payer BC | LOC: WCC 12:44 | PROVIDERS: ATTEND Nurse Practitioner Family | DX: E11.621 Type 2 diabetes mellitus with foot ulcer (principal); M86.672 Other chronic osteomyelitis, left ankle and foot; L97.424 Non-pressure chronic ulcer of left heel and midfoot with necrosis of bone; M14.672 Charcot's joint, left ankle and foot; B95.1 Streptococcus, group B, as the cause of diseases classified elsewhere; B96.5 Pseudomonas (aeruginosa) (mallei) (pseudomallei) as the cause of diseases classified elsewhere | CPT/HCPCS: 97605; G0277 ==

== ENCOUNTER → 2025-05-10 | Outpatient (REF) | payer BC | LOC: WCC 14:45 | PROVIDERS: ATTEND Internal Medicine Infectious Disease | DX: E11.621 Type 2 diabetes mellitus with foot ulcer (principal); M86.672 Other chronic osteomyelitis, left ankle and foot; L97.424 Non-pressure chronic ulcer of left heel and midfoot with necrosis of bone ==

== ENCOUNTER → 2025-05-11 | Outpatient (REF) | payer BC | LOC: WCC 12:59 | PROVIDERS: ATTEND Nurse Practitioner Family | DX: E11.621 Type 2 diabetes mellitus with foot ulcer (principal); M86.672 Other chronic osteomyelitis, left ankle and foot; L97.424 Non-pressure chronic ulcer of left heel and midfoot with necrosis of bone | CPT/HCPCS: 83036; 97605; 99212; G0277 ==

== ENCOUNTER → 2025-05-14 | Outpatient (REF) | payer BC | LOC: WCC 07:49 | PROVIDERS: ATTEND Plastic Surgery | DX: E11.621 Type 2 diabetes mellitus with foot ulcer (principal); L97.424 Non-pressure chronic ulcer of left heel and midfoot with necrosis of bone; M14.672 Charcot's joint, left ankle and foot; B95.4 Other streptococcus as the cause of diseases classified elsewhere; B96.5 Pseudomonas (aeruginosa) (mallei) (pseudomallei) as the cause of diseases classified elsewhere | CPT/HCPCS: 97605; 99212; G0277 ==

== ENCOUNTER → 2025-05-15 | Outpatient (REF) | payer BC | LOC: WCC 11:38 | PROVIDERS: ATTEND Nurse Practitioner Family | DX: E11.621 Type 2 diabetes mellitus with foot ulcer (principal); M86.672 Other chronic osteomyelitis, left ankle and foot; L97.424 Non-pressure chronic ulcer of left heel and midfoot with necrosis of bone ==

== ENCOUNTER → 2025-05-16 | Outpatient (REF) | payer BC | LOC: WCC 10:00 | PROVIDERS: ATTEND Nurse Practitioner Family | DX: E11.621 Type 2 diabetes mellitus with foot ulcer (principal); L97.424 Non-pressure chronic ulcer of left heel and midfoot with necrosis of bone; M14.672 Charcot's joint, left ankle and foot; B95.4 Other streptococcus as the cause of diseases classified elsewhere; B96.5 Pseudomonas (aeruginosa) (mallei) (pseudomallei) as the cause of diseases classified elsewhere ==

== ENCOUNTER → 2025-05-18 | Outpatient (REF) | payer BC | LOC: WCC 08:39 | PROVIDERS: ATTEND Nurse Practitioner Family | DX: E11.621 Type 2 diabetes mellitus with foot ulcer (principal); L97.424 Non-pressure chronic ulcer of left heel and midfoot with necrosis of bone; M14.672 Charcot's joint, left ankle and foot; B95.4 Other streptococcus as the cause of diseases classified elsewhere; B96.5 Pseudomonas (aeruginosa) (mallei) (pseudomallei) as the cause of diseases classified elsewhere ==

== ENCOUNTER → 2025-05-21 | Outpatient (REF) | payer BC | LOC: WCC 08:41 | PROVIDERS: ATTEND Plastic Surgery | DX: E11.621 Type 2 diabetes mellitus with foot ulcer (principal); L97.424 Non-pressure chronic ulcer of left heel and midfoot with necrosis of bone; M14.672 Charcot's joint, left ankle and foot; B96.5 Pseudomonas (aeruginosa) (mallei) (pseudomallei) as the cause of diseases classified elsewhere ==

== ENCOUNTER → 2025-05-23 | Outpatient (REF) | payer BC | LOC: WCC 15:06 | PROVIDERS: ATTEND Nurse Practitioner Family | DX: E11.621 Type 2 diabetes mellitus with foot ulcer (principal); M86.672 Other chronic osteomyelitis, left ankle and foot; L97.424 Non-pressure chronic ulcer of left heel and midfoot with necrosis of bone | CPT/HCPCS: 36415; 82948; 99213; G0277 ==

== ENCOUNTER → 2025-05-24 | Outpatient (REF) | payer BC | LOC: WCC 12:41 | PROVIDERS: ATTEND Nurse Practitioner Family | DX: E11.621 Type 2 diabetes mellitus with foot ulcer (principal); M86.672 Other chronic osteomyelitis, left ankle and foot; L97.424 Non-pressure chronic ulcer of left heel and midfoot with necrosis of bone; M14.672 Charcot's joint, left ankle and foot; B95.4 Other streptococcus as the cause of diseases classified elsewhere; B96.5 Pseudomonas (aeruginosa) (mallei) (pseudomallei) as the cause of diseases classified elsewhere | CPT/HCPCS: 36415; 82948; 97605; 99212; G0277 ==

== ENCOUNTER → 2025-05-25 | Outpatient (REF) | payer BC | LOC: WCC 11:58 | PROVIDERS: ATTEND Plastic Surgery | DX: E11.621 Type 2 diabetes mellitus with foot ulcer (principal); M86.672 Other chronic osteomyelitis, left ankle and foot; L97.424 Non-pressure chronic ulcer of left heel and midfoot with necrosis of bone | CPT/HCPCS: 36415; 82948; G0277 ==

== ENCOUNTER → 2025-05-28 | Outpatient (REF) | payer BC | LOC: WCC 09:39 | PROVIDERS: ATTEND Plastic Surgery | DX: E11.621 Type 2 diabetes mellitus with foot ulcer (principal); M86.672 Other chronic osteomyelitis, left ankle and foot; L97.424 Non-pressure chronic ulcer of left heel and midfoot with necrosis of bone | CPT/HCPCS: 36415; 82948; 97605; 99212; G0277 ==

== ENCOUNTER → 2025-05-29 | Outpatient (REF) | payer BC | LOC: WCC 13:33 | PROVIDERS: ATTEND Nurse Practitioner Family | DX: E11.621 Type 2 diabetes mellitus with foot ulcer (principal); M86.672 Other chronic osteomyelitis, left ankle and foot; L97.424 Non-pressure chronic ulcer of left heel and midfoot with necrosis of bone | CPT/HCPCS: 36415; 82948; G0277 ==

== ENCOUNTER → 2025-05-30 | Outpatient (REF) | payer BC | LOC: WCC 15:24 | PROVIDERS: ATTEND Plastic Surgery | DX: E11.621 Type 2 diabetes mellitus with foot ulcer (principal); L97.424 Non-pressure chronic ulcer of left heel and midfoot with necrosis of bone; M14.672 Charcot's joint, left ankle and foot; B95.4 Other streptococcus as the cause of diseases classified elsewhere; B96.5 Pseudomonas (aeruginosa) (mallei) (pseudomallei) as the cause of diseases classified elsewhere | CPT/HCPCS: 15275; 36415; 82948; 97605; 99212; G0277; Q4101 ==

== ENCOUNTER → 2025-05-31 | Outpatient (REF) | payer BC | LOC: WCC 10:49 | PROVIDERS: ATTEND Nurse Practitioner Family | DX: E11.621 Type 2 diabetes mellitus with foot ulcer (principal); M86.672 Other chronic osteomyelitis, left ankle and foot; L97.424 Non-pressure chronic ulcer of left heel and midfoot with necrosis of bone | CPT/HCPCS: 36415; 82948; G0277 ==

== ENCOUNTER → 2025-06-01 | Outpatient (REF) | payer BC | LOC: WCC 13:58 | PROVIDERS: ATTEND Nurse Practitioner Family | DX: E11.621 Type 2 diabetes mellitus with foot ulcer (principal); M86.672 Other chronic osteomyelitis, left ankle and foot; L97.424 Non-pressure chronic ulcer of left heel and midfoot with necrosis of bone; M14.672 Charcot's joint, left ankle and foot; B95.4 Other streptococcus as the cause of diseases classified elsewhere; B96.5 Pseudomonas (aeruginosa) (mallei) (pseudomallei) as the cause of diseases classified elsewhere | CPT/HCPCS: 99213; G0277 ==

== ENCOUNTER → 2025-06-06 | Outpatient (REF) | payer BC | LOC: RAD 13:03 | PROVIDERS: ATTEND Nurse Practitioner Family | DX: E11.621 Type 2 diabetes mellitus with foot ulcer (principal); L97.424 Non-pressure chronic ulcer of left heel and midfoot with necrosis of bone ==

== ENCOUNTER → 2025-06-06 | Outpatient (REF) | payer BC | LOC: WCC 11:18 | PROVIDERS: ATTEND Plastic Surgery | DX: E11.621 Type 2 diabetes mellitus with foot ulcer (principal); L97.424 Non-pressure chronic ulcer of left heel and midfoot with necrosis of bone; M14.672 Charcot's joint, left ankle and foot; R60.0 Localized edema; B96.5 Pseudomonas (aeruginosa) (mallei) (pseudomallei) as the cause of diseases classified elsewhere ==

== ENCOUNTER → 2025-06-08 | Outpatient (REF) | payer BC | LOC: CT 14:41 | PROVIDERS: ATTEND Nurse Practitioner Family | DX: E11.621 Type 2 diabetes mellitus with foot ulcer (principal); M86.672 Other chronic osteomyelitis, left ankle and foot; L97.424 Non-pressure chronic ulcer of left heel and midfoot with necrosis of bone ==

== ENCOUNTER → 2025-06-08 | Outpatient (REF) | payer BC | LOC: WCC 10:15 | PROVIDERS: ATTEND Nurse Practitioner Family | DX: E11.621 Type 2 diabetes mellitus with foot ulcer (principal); M86.672 Other chronic osteomyelitis, left ankle and foot; L97.424 Non-pressure chronic ulcer of left heel and midfoot with necrosis of bone; M14.672 Charcot's joint, left ankle and foot; R60.0 Localized edema; B95.4 Other streptococcus as the cause of diseases classified elsewhere; B96.5 Pseudomonas (aeruginosa) (mallei) (pseudomallei) as the cause of diseases classified elsewhere | CPT/HCPCS: 29581; 87071; 87075; 87205; 97605; 99212; G0277 ==

== ENCOUNTER → 2025-06-11 | Outpatient (REF) | payer BC | LOC: WCC 09:25 | PROVIDERS: ATTEND Plastic Surgery | DX: E11.621 Type 2 diabetes mellitus with foot ulcer (principal); M86.672 Other chronic osteomyelitis, left ankle and foot; L97.424 Non-pressure chronic ulcer of left heel and midfoot with necrosis of bone; M14.672 Charcot's joint, left ankle and foot; R60.0 Localized edema; B95.4 Other streptococcus as the cause of diseases classified elsewhere; B96.5 Pseudomonas (aeruginosa) (mallei) (pseudomallei) as the cause of diseases classified elsewhere | CPT/HCPCS: 97605; 99212; G0277 ==

== ENCOUNTER → 2025-06-12 | Outpatient (REF) | payer BC | LOC: WCC 09:51 | PROVIDERS: ATTEND Nurse Practitioner Family | DX: E11.621 Type 2 diabetes mellitus with foot ulcer (principal); M86.672 Other chronic osteomyelitis, left ankle and foot; L97.424 Non-pressure chronic ulcer of left heel and midfoot with necrosis of bone ==

== ENCOUNTER → 2025-06-13 | Outpatient (REF) | payer BC | LOC: WCC 10:47 | PROVIDERS: ATTEND Nurse Practitioner Family | DX: E11.621 Type 2 diabetes mellitus with foot ulcer (principal); M86.672 Other chronic osteomyelitis, left ankle and foot; L97.424 Non-pressure chronic ulcer of left heel and midfoot with necrosis of bone | CPT/HCPCS: 15275; 97605; 99212; G0277; Q4101 ==

== ENCOUNTER → 2025-06-14 | Outpatient (REF) | payer BC | LOC: WCC 12:42 | PROVIDERS: ATTEND Plastic Surgery | DX: E11.621 Type 2 diabetes mellitus with foot ulcer (principal); M86.672 Other chronic osteomyelitis, left ankle and foot; L97.424 Non-pressure chronic ulcer of left heel and midfoot with necrosis of bone; B95.4 Other streptococcus as the cause of diseases classified elsewhere ==

== ENCOUNTER → 2025-06-15 | Outpatient (REF) | payer BC | LOC: WCC 13:55 | PROVIDERS: ATTEND Nurse Practitioner Family | DX: E11.621 Type 2 diabetes mellitus with foot ulcer (principal); L97.424 Non-pressure chronic ulcer of left heel and midfoot with necrosis of bone; M14.672 Charcot's joint, left ankle and foot; B95.4 Other streptococcus as the cause of diseases classified elsewhere; B96.5 Pseudomonas (aeruginosa) (mallei) (pseudomallei) as the cause of diseases classified elsewhere ==

== ENCOUNTER → 2025-06-18 | Outpatient (REF) | payer BC | LOC: WCC 15:15 | PROVIDERS: ATTEND Plastic Surgery | DX: R60.0 Localized edema (principal) ==

== ENCOUNTER → 2025-06-20 | Outpatient (REF) | payer BC | LOC: WCC 12:59 | PROVIDERS: ATTEND Nurse Practitioner Family | DX: E11.621 Type 2 diabetes mellitus with foot ulcer (principal); M86.672 Other chronic osteomyelitis, left ankle and foot; L97.424 Non-pressure chronic ulcer of left heel and midfoot with necrosis of bone; M14.672 Charcot's joint, left ankle and foot; R60.0 Localized edema; B95.4 Other streptococcus as the cause of diseases classified elsewhere; B96.5 Pseudomonas (aeruginosa) (mallei) (pseudomallei) as the cause of diseases classified elsewhere | CPT/HCPCS: 15275; 99212; G0277; Q4101 ==

== ENCOUNTER → 2025-06-21 | Outpatient (REF) | payer BC | LOC: WCC 10:13 | PROVIDERS: ATTEND Nurse Practitioner Family | DX: E11.621 Type 2 diabetes mellitus with foot ulcer (principal); M86.672 Other chronic osteomyelitis, left ankle and foot; L97.424 Non-pressure chronic ulcer of left heel and midfoot with necrosis of bone ==

== ENCOUNTER → 2025-06-28 | Outpatient (REF) | payer BC | LOC: WCC 14:09 | PROVIDERS: ATTEND Internal Medicine Infectious Disease | DX: E11.621 Type 2 diabetes mellitus with foot ulcer (principal); L97.424 Non-pressure chronic ulcer of left heel and midfoot with necrosis of bone; M14.672 Charcot's joint, left ankle and foot; R60.0 Localized edema | CPT/HCPCS: 15275; 99212; Q4101 ==

== ENCOUNTER → 2025-07-06 | Outpatient (REF) | payer BC | LOC: WCC 12:45 | PROVIDERS: ATTEND Internal Medicine Infectious Disease | DX: E11.621 Type 2 diabetes mellitus with foot ulcer (principal); L97.424 Non-pressure chronic ulcer of left heel and midfoot with necrosis of bone; M14.672 Charcot's joint, left ankle and foot; R60.0 Localized edema; B96.5 Pseudomonas (aeruginosa) (mallei) (pseudomallei) as the cause of diseases classified elsewhere ==

== ENCOUNTER → 2025-07-09 | Outpatient (REF) | payer BC | LOC: WCC 08:41 | PROVIDERS: ATTEND Internal Medicine Infectious Disease | DX: E11.621 Type 2 diabetes mellitus with foot ulcer (principal); M86.672 Other chronic osteomyelitis, left ankle and foot; L97.424 Non-pressure chronic ulcer of left heel and midfoot with necrosis of bone | CPT/HCPCS: 29581; 36415; 82948; 99213; G0277 ==